=== PATIENT | female | born 1995 | race Caucasian/White ===

== ENCOUNTER 2018-01-05 11:19 | Emergency (ER) | payer SELFPAY ==
[2018-01-05 11:20] VITALS: BP 132/77; PULSE 98; RESP 18; TEMP 37; O2SAT 99; BMI 47.0
--- NOTE | 2018-01-05 12:00 | CT_ITS ---
STUDY: CT ABDOMEN AND PELVIS WITHOUT CONTRAST REASON FOR EXAM: Female, 22 years old. ABD AND PELVIC PAIN AND PRESSURE.;FEELS LIKE LABOR PAINS; Prior cholecystectomy. RADIATION DOSAGE (If Supplied By Facility): CTDIvol = ( 23.93 ) mGy, DLP = ( 1381.03 ) mGycm TECHNIQUE: Transaxial images were obtained from the dome of the diaphragm to the symphysis pubis without oral contrast, and without intravenous contrast. Sagittal and coronal images were reconstructed. Individualized dose optimization techniques were used for this CT. COMPARISON: None. FINDINGS: The visualized lung bases are unremarkable. The visualized portions of the heart are within normal limits. There could be mild fatty infiltration of the liver. There are surgical clips in the gallbladder fossa consistent with a prior cholecystectomy. Normal spleen. Normal pancreas. Normal bilateral adrenal glands. Normal right kidney. Normal left kidney. Normal visualized stomach. Normal small intestine. Normal colon. The appendix is visualized and appears normal. Normal abdominal aorta. Normal inferior vena cava. Normal retroperitoneum. Normal urinary bladder. There is a small umbilical hernia containing fat. Normal osseous structures. CT/Abdomen/Pelvis without Cont IMPRESSION: There is a small umbilical hernia containing fat. There could be mild fatty infiltration of the liver. Electronically Signed: Berta Yang MD at 12:44 EDT , Service support ,
[2018-01-05] MEDS: Ondansetron 4 MG/2 ML Vial IV (12:17)
[2018-01-05] MEDS: 0.9% Normal Saline 1,000 ML 1000 ML IV (12:17)
[2018-01-05] MEDS: Morphine 4 MG/ML Syringe IV (12:17)
[2018-01-05 12:44] LABS: Absolute Lymphocyte Count 3.62 X10^3/ul (0.83-4.51); Absolute Neutrophil Count 6.5 X10^3/uL (2.0-7.7); Basophil# 0.02 X10^3/uL; Basophil% 0.2 % (0-1); Eosinophil# 0.35 X10^3/uL; Eosinophils% 3.1 % (0-5); Hematocrit 42.8 % (37-47); Hemoglobin 13.7 g/dl (12.0-15.0); Lymphocyte # 3.62 X10^3/ul (4.0); Lymphocyte % 32.1 % (19-41); Mean Corpuscular Hgb 28.6 pg (27.0-32.0); Mean Corpuscular Volume 89.4 fL (81-99); Mean Platelet Vol. 11.4 fl (6.2-12.0); Monocyte# 0.81 X10^3/uL; Monocyte% 7.2 % (0-10); Neutrophil # 6.46 X10^3/uL (2.7-7.7); Neutrophil % 57.1 % (47-70); Platelet Count 226 K/mm3 (150-450); RBC Distribution Width SD 42.2 fl (35.1-43.9); Red Blood Count 4.79 M/mm3 (4.2-5.4); White Blood Count 11.3 K/mm3 (4.4-11.0)
[2018-01-05 12:53] LABS: POSITIVE COUNT NO; POSITIVE DIFFERENTIAL NO; POSITIVE MORPHOLOGY NO
[2018-01-05 12:54] LABS: ALB/GLOB Ratio 0.7 RATIO (0.9-2.4); AST(SGOT) 66 U/L (15-37); Alanine Aminotransfer ALT/SGPT 86 U/L (13-56); Albumin, Serum 3.2 g/dL (3.2-5.0); Alkaline Phosphatase 71 U/L (45-117); Anion Gap 6 (5-15); BUN 9 mg/dL (7-18); BUN/Creat Ratio 13.7 RATIO (10-20); Calcium,Total 8.6 mg/dL (8.5-10.1); Chloride 111 mmol/L (98-107); Creatinine, Serum 0.66 mg/dL (0.55-1.02); EST Glomerular Filtration Rate 117 mL/min (>60); Est Glom Filt Rate - Afr Amer 142 mL/min (>60); Estimated Creatinine Clearance 127.81 ml/min; Globulin 4.7 g/dL (2.2-4.2); Glucose 91 mg/dL (74-106); Protein, Total 7.9 g/dL (6.4-8.2); Sodium Level 140 mmol/L (136-145)
--- NOTE | 2018-01-05 13:10 | ED.VISSUMM ---
- ER Visit Summary Date of Service: 01/05/18 Chief Complaint: Patient presents with abdominal pain that is diffuse and started about 18 hours ago. She was seen at an outside hospital apparently had a normal urinalysis, negative and unremarkable blood work, she continues to have the pain. No fever or chills no diarrhea or constipation no dysuria. No flank pain. The pain is mostly lower abdominal pain left greater than right but she says that the entire abdomen hurts. Is described as crampy waxing and waning. No right upper quadrant pain infectious had a cholecystectomy. Physical Examination: Appears in some distress. Morbidly obese Moist mucous membranes, no obvious facial deformity No C-spine tenderness supple neck. Regular rate and rhythm without any obvious murmurs Clear lungs bilaterally speaking in full sentences without any obvious respiratory distress Abdomen soft with diffuse tenderness no guarding or rebound. Most the pain is left lower quadrant there is no significant pelvic pain there is no specific pain at McBurney's. Moves all extremities without any difficulty or pain. Skin does not show any obvious rashes or lesions, no trauma. Alert oriented ?3 with no gross focal deficit Emergency Department Course and Treatment: Patient was given analgesia IV fluids CBC chemistries and CT are unremarkable. She did have evidence of a urinary tract infection, she will be treated otherwise she will be discharged to follow-up with CONVENTION SERVICES MANAGER. Discharge stable condition Impression: [Abdominal pain, urinary tract infection] This note was generated with [employer] dictation software. It may contain incorrect words, spelling, and punctuation that were not noted in review of the chart prior to signing ED Disposition - Plan for ED Patient: Disposition: Home or Assisted Living Chief Complaint: Abd Pain Instructions: ED Abdominal Pain Unkn Cause, Understanding Urinary Tract Infections (UTIs) Prescriptions: Smz/Tmp Ds [Bactrim Ds] 1 tab PO BID #14 tab Referrals: Leelee Jackson NP-C [Primary Care Provider] - 3-5 Days
--- NOTE | 2018-01-05 13:18 | ED.DCSUM_ITS ---
- ER Visit Summary Date of Service: 01/05/18 Chief Complaint: Patient presents with abdominal pain that is diffuse and started about 18 hours ago. She was seen at an outside hospital apparently had a normal urinalysis, negative and unremarkable blood work, she continues to have the pain. No fever or chills no diarrhea or constipation no dysuria. No flank pain. The pain is mostly lower abdominal pain left greater than right but she says that the entire abdomen hurts. Is described as crampy waxing and waning. No right upper quadrant pain infectious had a cholecystectomy. Physical Examination: Appears in some distress. Morbidly obese Moist mucous membranes, no obvious facial deformity No C-spine tenderness supple neck. Regular rate and rhythm without any obvious murmurs Clear lungs bilaterally speaking in full sentences without any obvious respiratory distress Abdomen soft with diffuse tenderness no guarding or rebound. Most the pain is left lower quadrant there is no significant pelvic pain there is no specific pain at McBurney's. Moves all extremities without any difficulty or pain. Skin does not show any obvious rashes or lesions, no trauma. Alert oriented ?3 with no gross focal deficit Emergency Department Course and Treatment: Patient was given analgesia IV fluids CBC chemistries and CT are unremarkable. She did have evidence of a urinary tract infection, she will be treated otherwise she will be discharged to follow-up with PAINTINGS CONSERVATOR. Discharge stable condition Impression: [Abdominal pain, urinary tract infection] This note was generated with [employer] dictation software. It may contain incorrect words, spelling, and punctuation that were not noted in review of the chart prior to signing ED Disposition - Plan for ED Patient: Disposition: Home or Assisted Living Chief Complaint: Abd Pain Instructions: ED Abdominal Pain Unkn Cause, Understanding Urinary Tract Infections (UTIs) Prescriptions: Smz/Tmp Ds [Bactrim Ds] 1 tab PO BID #14 tab Referrals: Leelee Jackson NP-C [Primary Care Provider] - 3-5 Days
[2018-01-05 13:32] VITALS: BP 135/70; PULSE 90; RESP 14; O2SAT 99
[2018-01-05 13:32] LABS: Bacteria 0 SEEN /hpf (None Seen); Mucous, Urine 0 SEEN /hpf (<or=2+); Red Blood Cells-Urine 0 SEEN /hpf (0-5)
[2018-01-05 13:36] LABS: Color, Urine Yellow (Yellow); Glucose, Dipstick Normal (Normal); Ketone-Dipstick Negative (Negative); Leukocyte Esterase-Dipstick 500 /ul (Negative); Nitrite-Dipstick Negative (Negative); Occult Blood-Urine 10 /ul (Negative); Protein-Dipstick 15 mg/dl (Negative); Specific Gravity, Urine 1.015 (1.002-1.030); Urine Bilirubin Dipstick Negative (Negative); Urine Clarity Sl. Cloudy (Clear); Urine Urobilinogen Normal (Normal)
[2018-01-05 13:45] LABS: Squamous Epithelial Cells - UA 10-25 SEEN /hpf (5-10); White Blood Cells 10-25 SEEN /hpf (0-5)
[2018-01-05 14:16] VITALS: BP 140/78; PULSE 85; RESP 14; O2SAT 99
== END 2018-01-05 14:21 | disposition home or self-care (01) ==
PROVIDERS: Emergency Provider Emergency Medicine; Family Provider Nurse Practitioner Primary Care; PCP Nurse Practitioner Primary Care
DX: R10.84 Generalized abdominal pain (principal); E66.01 Morbid (severe) obesity due to excess calories; Z72.0 Tobacco use
CPT/HCPCS: 74176; 80053; 81001; 85025; 96374; 96375; 99283; J7030; J2405

== ENCOUNTER 2018-02-07 20:59 | Emergency (ER) | payer SELFPAY ==
[2018-02-07 21:00] VITALS: BP 139/77; PULSE 90; RESP 16; TEMP 36.5; O2SAT 95; BMI 47.6
[2018-02-07] MEDS: Ondansetron 4 MG/2 ML Vial IV (23:50)
[2018-02-07] MEDS: 0.9% Normal Saline 1,000 ML 1000 ML IV (23:50)
[2018-02-07 23:53] LABS: Bacteria 0 SEEN /hpf (None Seen); Mucous, Urine 0 SEEN /hpf (<or=2+); Red Blood Cells-Urine 0 SEEN /hpf (0-5)
[2018-02-07 23:56] VITALS: BP 136/95; BP 138/76; BP 145/89; PULSE 73; PULSE 77; PULSE 80
[2018-02-08 00:05] LABS: Color, Urine Yellow (Yellow); Glucose, Dipstick Normal (Normal); Ketone-Dipstick 5 mg/dl (Negative); Leukocyte Esterase-Dipstick 100 /ul (Negative); Nitrite-Dipstick Negative (Negative); Occult Blood-Urine 10 /ul (Negative); Protein-Dipstick 30 mg/dl (Negative); Specific Gravity, Urine 1.025 (1.002-1.030); Urine Bilirubin Dipstick Negative (Negative); Urine Clarity Clear (Clear); Urine Urobilinogen Normal (Normal)
[2018-02-08 00:13] LABS: Absolute Lymphocyte Count 5.08 X10^3/ul (0.83-4.51); Absolute Neutrophil Count 7.3 X10^3/uL (2.0-7.7); Basophil# 0.07 X10^3/uL; Basophil% 0.5 % (0-1); Eosinophil# 0.25 X10^3/uL; Eosinophils% 1.9 % (0-5); Hematocrit 44.7 % (37-47); Hemoglobin 15.1 g/dl (12.0-15.0); Lymphocyte # 5.08 X10^3/ul (4.0); Lymphocyte % 37.7 % (19-41); Mean Corp Hgb Conc 33.8 g/gl (32-36); Mean Corpuscular Hgb 29.1 pg (27.0-32.0); Mean Corpuscular Volume 86.1 fL (81-99); Mean Platelet Vol. 11.1 fl (6.2-12.0); Monocyte# 0.71 X10^3/uL; Monocyte% 5.3 % (0-10); Neutrophil # 7.32 X10^3/uL (2.7-7.7); Neutrophil % 54.2 % (47-70); Platelet Count 288 K/mm3 (150-450); RBC Distribution Width CV 13.2 % (11.6-14.6); RBC Distribution Width SD 40.8 fl (35.1-43.9); Red Blood Count 5.19 M/mm3 (4.2-5.4); White Blood Count 13.5 K/mm3 (4.4-11.0)
[2018-02-08 00:19] LABS: Differential Indicated SCAN CRITERIA MET; POSITIVE COUNT NO; POSITIVE DIFFERENTIAL YES; POSITIVE MORPHOLOGY YES
[2018-02-08 00:25] LABS: Pregnancy, Serum, hCG Quali. NEGATIVE Negative (0-9 Nonpreg)
[2018-02-08 00:26] LABS: Squamous Epithelial Cells - UA 25-50 SEEN /hpf (5-10); White Blood Cells 0-5 SEEN /hpf (0-5)
[2018-02-08] MEDS: proMETHazine 25 MG/ML Syringe 12.5 MG IV (00:32)
[2018-02-08 01:01] LABS: Anion Gap 13 (5-15); BUN 10 mg/dL (7-18); BUN/Creat Ratio 11.1 RATIO (10-20); Calcium,Total 9.1 mg/dL (8.5-10.1); Chloride 107 mmol/L (98-107); EST Glomerular Filtration Rate 82 mL/min (>60); Est Glom Filt Rate - Afr Amer 99 mL/min (>60); Estimated Creatinine Clearance 93.73 ml/min; Glucose 92 mg/dL (74-106); Potassium 3.8 mmol/L (3.5-5.1); Sodium Level 140 mmol/L (136-145)
[2018-02-08] MEDS: HYDROcodone Bitartrate/Apap 5/325 Tablet PO ×2 (01:12→01:31)
--- NOTE | 2018-02-08 01:16 | ED.VISSUMM ---
- ER Visit Summary Date of Service: 02/08/18 Chief Complaint: [Vomiting] History of Present Illness: The patient is a 22 F [presents to the emergency department complaint of vomiting that started today. Patient states she has thrown up at least 13 times. Patient denies any abdominal pain. Patient did feel lightheaded today. Patient states her periods are irregular but she does not think she is . She denies any sick contacts. She has had no fever. Patient does have a right lower molar that is painful and has a dentist appointment coming up next week. Patient denies any diarrhea.] Physical Examination: [HEENT-PERRLA, EOMI. Cranial nerves II through XII grossly intact. TMs clear. Mucous membranes moist. No adenopathy. Right lower third molar broken and carried and tender to palpation. No gingival abscess noted. No facial cellulitis. Cardiovascular-regular rate and rhythm without murmur or ectopy Lungs-clear to auscultation, chest wall stable without crepitus or subcu emphysema Abdomen-normoactive bowel sounds, soft, nontender, no rebound or rigidity, no peritoneal signs. Extremities-intact ?4, normal range of motion, normal pulses, atraumatic] Test Results: [CBC with differential obtained showed a white count of 13.5, hemoglobin 15, hematocrit 45, platelets 288. Chemistries unremarkable. Urinalysis showed small amount of ketones. HCG was negative.] Emergency Department Course and Treatment: Patient was given a liter normal same fluid bolus. Patient was given Zofran 4 mg IV followed by Phenergan 12.5 mg IV. Patient was able to tolerate p.o. fluids. Patient was given a dose of clindamycin p.o. [] Treatment Plan: [Patient will be given a prescription for clindamycin and Zofran as well as [place]] Disposition: [Discharged home in stable condition] Impression: [Vomiting/gastroenteritis Dental pain] This note was generated with [employer] dictation software. It may contain incorrect words, spelling, and punctuation that were not noted in review of the chart prior to signing ED Disposition - Plan for ED Patient: Chief Complaint: Nausea/Vomiting Referrals: Leelee Jackson, KAITLYNNC [Primary Care Provider] -
--- NOTE | 2018-02-08 01:18 | ED.DEP ---
ED Disposition - Plan for ED Patient: Chief Complaint: Nausea/Vomiting Instructions: ED Nausea Vomiting, ED Tooth Pain Prescriptions: Hydrocodone Bitart/Apap 5-325 [[place] 5MG-325MG] 1 tab PO Q4H PRN PRN 2 Days #10 tab PRN Reason: Pain Ondansetron [Zofran Odt] 4 mg PO Q8H PRN PRN #10 tab PRN Reason: Nausea Clindamycin HCl [Cleocin] 300 mg PO Q6H #40 cap Referrals: Leelee Jackson TRANSPORT AIDE-C [Primary Care Provider] - 3-5 Days Additional Instructions: see a dentist
[2018-02-08 01:25] LABS: Differential Comment SCANNED; Reactive Lymphocyte 2+
[2018-02-08] MEDS: Ondansetron ODT 4 MG Tablet PO (01:31)
[2018-02-08] MEDS: Clindamycin HCl 150 MG Capsule 300 MG PO (01:31)
[2018-02-08 01:35] VITALS: BP 122/78; PULSE 78; RESP 18; O2SAT 99
== END 2018-02-08 01:36 | disposition home or self-care (01) ==
LOC: ED 02-08 00:19
PROVIDERS: Emergency Provider Emergency Medicine; Family Provider Nurse Practitioner Primary Care; PCP Nurse Practitioner Primary Care
DX: K52.9 Noninfective gastroenteritis and colitis, unspecified (principal); K08.89 Other specified disorders of teeth and supporting structures; R11.2 Nausea with vomiting, unspecified; Z72.0 Tobacco use
CPT/HCPCS: 80048; 81001; 84703; 85025; 96361; 96374; 96375; 99285; J7030; A4216; J2405

== ENCOUNTER 2018-09-01 06:28 | Emergency (ER) | payer SELFPAY ==
[2018-09-01 06:28] VITALS: BP 132/72; PULSE 97; RESP 15; TEMP 36.9; O2SAT 98; BMI 44.3
--- NOTE | 2018-09-01 06:40 | ED.VISSUMM ---
- ER Visit Summary Date of Service: 09/01/18 Chief Complaint: Left shoulder and arm pain History of Present Illness: The patient is a 23 F who presents with left shoulder and arm pain that began about 2-3 hours before presentation. She complains of a sharp pain in her left shoulder and aching pain radiating down her arm. She complains of some tingling in her fingers. No weakness. No history of prior similar symptoms. No trauma or injury. Review of systems otherwise notable for recent cough. No fevers chest pain shortness of breath vomiting. Physical Examination: Afebrile vitals normal Heart regular rate and rhythm Lungs are clear Patient does have left paraspinal cervical and trapezius tenderness she has normal strength of the left upper extremity she has brisk capillary refill she has normal sensation Test Results: Not indicated Emergency Department Course and Treatment: Patient's presentation is suggestive of cervical radiculopathy. Given that she does have some muscular tenderness there is likely component of muscle strain or spasm in the shoulder neck as well. Discussed supportive care. Patient will be given a prescription for naproxen. She understands to return for new or worsening symptoms. She will otherwise follow-up as an outpatient was discharged home. Treatment Plan: [] Disposition: Discharge Impression: Cervical radiculopathy This note was generated with [employer] dictation software. It may contain incorrect words, spelling, and punctuation that were not noted in review of the chart prior to signing ED Disposition - Plan for ED Patient: Referrals: Leelee Jackson, JOLLY-C [Primary Care Provider] -
--- NOTE | 2018-09-01 06:41 | ED.DEP ---
ED Disposition - Plan for ED Patient: Instructions: ED Cervical Radiculopathy Prescriptions: Naproxen [Naprosyn] 500 mg PO BID #20 tab Referrals: Leelee Jackson JOGGLE PRESS OPERATOR-C [Primary Care Provider] -
== END 2018-09-01 06:53 | disposition home or self-care (01) ==
PROVIDERS: Emergency Provider Emergency Medicine; Family Provider Nurse Practitioner Primary Care; PCP Nurse Practitioner Primary Care
DX: M54.12 Radiculopathy, cervical region (principal); Z72.0 Tobacco use
CPT/HCPCS: 99282

== ENCOUNTER 2018-09-15 18:18 | Emergency (ER) | payer MEDICAID, SELFPAY ==
[2018-09-15 18:19] VITALS: BP 164/90; PULSE 109; RESP 16; TEMP 36.6; O2SAT 98; BMI 47.1
--- NOTE | 2018-09-15 18:45 | US_ITS ---
STUDY: TRANSVAGINAL ULTRASOUND REASON FOR EXAM: Female, 23 years old. Pelvic bleeding TECHNIQUE: A transvaginal ultrasound was performed. Multiple grayscale and color duplex Doppler imaging was performed. TECHNICAL QUALITY: Adequate. PRIOR ULTRASOUND: Prior CT 01/05/2018. FINDINGS: The uterus measures 6.6 x 4.4 x 2.7 cm. The endometrium measures 4 mm in AP diameter and appears unremarkable. There is no evidence for gestational sac.. Incidentally noted is nabothian cyst. There is no demonstrated uterine fibroid. . The right ovary measures 4.5 x 4.2 x 3.9. There is a 4.6 x 3.8 x 3.5 cm right ovarian cyst. There is no visualized right adnexal mass or complex lesion. The left ovary measures 2.6 x 1.7 x 2 cm. There is no left ovarian cyst. There is no visualized left adnexal mass or complex lesion. There is no fluid in the cul de sac. US/Transvaginal w/Preg US IMPRESSION: 4.6 x 3.8 x 3.5 cm right ovarian cyst, follow-up ultrasound for stability recommended in 3 months Nabothian cyst within the cervix No evidence for gestational sac. Correlation with serum beta hCG levels recommended. Electronically Signed: Rigoberto Paulino, at 20:42 EDT Tel , Service support ,
--- NOTE | 2018-09-15 18:55 | ED.VISSUMM ---
- ER Visit Summary Date of Service: 09/15/18 Chief Complaint: [] Vaginal bleeding indeterminant test History of Present Illness: The patient is a 23 F [] patient is a , indicating she had early miscarriage and then live 18 weeks with subsequent of that child, indicates she is having no menstrual cycles for over 8 months, she took a test that somehow was indeterminant she had intermittent spotting since yesterday and she came in for evaluation, she has no history of ectopic does complain of pelvic cramps intermittently no nausea or vomiting no urinary symptoms It is not clear why she has had no menstrual cycles for 8 months she has a thoracic surgeon and has not seen them she has no known history of STD or any or PULP OPERATOR pathology states Physical Examination: [] vs signs are within normal limits General, no distress resting comfortably, still a large woman with a BMI of 50 HEENT is generally unremarkable The neck is supple no adenopathy Cardiovascular, regular rate and rhythm Lungs, clear bilateral Abdomen, soft nontender has intermittent pelvic cramps by her history, but her regarding organ megaly, She is deferred pelvic exam Extremities, no clubbing cyanosis or edema Neurologic, awake alert answering questions appropriately moving all 4 extremities Test Results: [] Emergency Department Course and Treatment: [] In all the above screening labs test fluids ultrasound Since laboratory results including hCG are negative and generally unremarkable see those reports pelvic ultrasound report also generally unremarkable see that report nothing acute, explained all the above to her she is comfortable discharge home now she is feeling better and she felt her thoracic surgeon take [id number] ibuprofen as needed and return for change in symptoms Treatment Plan: [] Disposition: [] Home stable Impression: [] Dysfunctional uterine bleeding no menstrual cycle for 8 months This note was generated with [employer] software. It may contain incorrect words, spelling, and punctuation that were not noted in review of the chart prior to signing ED Disposition - Plan for ED Patient: Referrals: Leelee Jackson NP-C [Primary Care Provider] -
--- NOTE | 2018-09-15 18:58 | ED.DCSUM_ITS ---
- ER Visit Summary Date of Service: 09/15/18 Chief Complaint: [] Vaginal bleeding indeterminant test History of Present Illness: The patient is a 23 F [] patient is a , indicating she had early miscarriage and then live 18 weeks with subsequent of that child, indicates she is having no menstrual cycles for over 8 months, she took a test that somehow was indeterminant she had intermittent spotting since yesterday and she came in for evaluation, she has no history of ectopic does complain of pelvic cramps intermittently no nausea or vomiting no urinary symptoms It is not clear why she has had no menstrual cycles for 8 months she has a nurse esthetician and has not seen them she has no known history of STD or any or HHAS pathology states Physical Examination: [] vs signs are within normal limits General, no distress resting comfortably, still a large woman with a BMI of 50 HEENT is generally unremarkable The neck is supple no adenopathy Cardiovascular, regular rate and rhythm Lungs, clear bilateral Abdomen, soft nontender has intermittent pelvic cramps by her history, but her regarding organ megaly, She is deferred pelvic exam Extremities, no clubbing cyanosis or edema Neurologic, awake alert answering questions appropriately moving all 4 extremities Test Results: [] Emergency Department Course and Treatment: [] In all the above screening labs test fluids ultrasound Since laboratory results including hCG are negative and generally unremarkable see those reports pelvic ultrasound report also generally unremarkable see that report nothing acute, explained all the above to her she is comfortable discharge home now she is feeling better and she felt her nurse esthetician take [id number] ibuprofen as needed and return for change in symptoms Treatment Plan: [] Disposition: [] Home stable Impression: [] Dysfunctional uterine bleeding no menstrual cycle for 8 months This note was generated with [employer] software. It may contain incorrect words, spelling, and punctuation that were not noted in review of the chart prior to signing ED Disposition - Plan for ED Patient: Referrals: Leelee Jackson NP-C [Primary Care Provider] -
[2018-09-15 19:10] LABS: Absolute Lymphocyte Count 3.22 X10^3/ul (0.83-4.51); Absolute Neutrophil Count 5.2 X10^3/uL (2.0-7.7); Basophil# 0.04 X10^3/uL; Basophil% 0.4 % (0-1); Eosinophil# 0.65 X10^3/uL; Eosinophils% 6.6 % (0-5); Hematocrit 44.7 % (37-47); Hemoglobin 14.8 g/dl (12.0-15.0); Lymphocyte # 3.22 X10^3/ul (4.0); Lymphocyte % 32.9 % (19-41); Mean Corp Hgb Conc 33.1 g/gl (32-36); Mean Corpuscular Hgb 29.2 pg (27.0-32.0); Mean Corpuscular Volume 88.3 fL (81-99); Mean Platelet Vol. 11.1 fl (6.2-12.0); Monocyte# 0.64 X10^3/uL; Monocyte% 6.5 % (0-10); Neutrophil % 53.3 % (47-70); POSITIVE COUNT NO; POSITIVE DIFFERENTIAL NO; POSITIVE MORPHOLOGY NO; Platelet Count 240 K/mm3 (150-450); RBC Distribution Width CV 13.3 % (11.6-14.6); RBC Distribution Width SD 42.7 fl (35.1-43.9); Red Blood Count 5.06 M/mm3 (4.2-5.4); White Blood Count 9.8 K/mm3 (4.4-11.0)
[2018-09-15 19:21] LABS: Pregnancy, Serum, hCG Quali. NEGATIVE Negative (0-9 Nonpreg)
[2018-09-15] MEDS: 0.9% Normal Saline 1,000 ML 1000 ML IV (19:21)
[2018-09-15 19:31] LABS: Mucous, Urine 0 SEEN /hpf (<or=2+); White Blood Cells 0 SEEN /hpf (0-5)
[2018-09-15 19:35] LABS: Color, Urine Yellow (Yellow); Glucose, Dipstick Normal (Normal); Ketone-Dipstick 5 mg/dl (Negative); Leukocyte Esterase-Dipstick 25 /ul (Negative); Nitrite-Dipstick Negative (Negative); Occult Blood-Urine 50 /ul (Negative); Protein-Dipstick 15 mg/dl (Negative); Urine Bilirubin Dipstick Negative (Negative); Urine Clarity Clear (Clear); Urine Urobilinogen 4 mg/dl (Normal); Urine pH 6.5 (5.0 - 8.0)
[2018-09-15 19:38] LABS: Bacteria RARE /hpf (None Seen); Red Blood Cells-Urine 0-5 SEEN /hpf (0-5); Squamous Epithelial Cells - UA 0-5 SEEN /hpf (5-10)
--- NOTE | 2018-09-15 20:29 | ED.DEP ---
ED Disposition - Plan for ED Patient: Instructions: ED Bleed Irregular Vaginal Referrals: Leelee Jackson, SPIRITS MODEL-C [Primary Care Provider] -
--- NOTE | 2018-09-15 20:30 | DCINST.ED_ITS ---
ED Disposition - Plan for ED Patient: Instructions: ED Bleed Irregular Vaginal Referrals: Leelee Jackson, BIOFUELS PRODUCTION ASSOCIATE-C [Primary Care Provider] -
[2018-09-15 21:39] VITALS: BP 117/90; PULSE 89; RESP 17; O2SAT 97
--- NOTE | 2018-09-15 21:39 | ED.RN ---
IV DC'ED, CATHETER INTACT, SMALL GAUZE DRESSING PLACED. DISCHARGE INSTRUCTIONS GIVEN TO AND REVIEWED WITH PATIENT, PATIENT DENIES QUESTIONS OR CONCERNS AND VOICES UNDERSTANDING OF DISCHARGE INSTRUCTIONS. PT AMBULATE SOUT OF ROOM WITHOUT DIFFICULTY.
== END 2018-09-15 21:40 | disposition home or self-care (01) ==
PROVIDERS: Emergency Provider Emergency Medicine; Family Provider Nurse Practitioner Primary Care; PCP Nurse Practitioner Primary Care
DX: N93.8 Other specified abnormal uterine and vaginal bleeding (principal)
CPT/HCPCS: 76817; 81001; 84703; 85025; 86900; 86901; 96360; 96361; 99282; J7030; A4216

== ENCOUNTER 2018-12-28 01:25 | Emergency (ER) | payer MEDICAID, SELFPAY ==
[2018-12-28 01:26] VITALS: BP 160/109; PULSE 110; RESP 18; TEMP 36.6; O2SAT 97; BMI 49.4
--- NOTE | 2018-12-28 02:26 | RAD_ITS ---
STUDY: X-RAY - RIGHT ANKLE REASON FOR EXAM: Female, 23 years old. Trauma. Pain TECHNIQUE: 3 view(s) of the ankle. COMPARISON: None. FINDINGS: Normal visualized distal tibia and fibula. Normal medial and lateral malleoli. Normal tibiotalar articulation and ankle mortise. Normal visualized talus and calcaneus. There is internal fixation of calcaneus fracture. There is arthrodesis of the first tarsometatarsal joint. The soft tissue structures are unremarkable. RAD/Ankle min 3 Views IMPRESSION: No acute bone injury of the ankle. Electronically Signed: Wayne Levi, at 3:08 EDT Tel , Service support ,
--- NOTE | 2018-12-28 02:26 | RAD_ITS ---
STUDY: X-RAY - RIGHT FOOT CLINICAL: Female, 23 years old. Trauma. Pain TECHNIQUE: 3 view(s) of the foot. COMPARISON: None. FINDINGS: Internal fixation of calcaneus fracture. Arthrodesis of the first tarsometatarsal joint, medial intercuneiform joint and navicular-cuneiform joint. Normal metatarsi. Normal metatarsophalangeal joint of the great toe. Normal tibial and fibular sesamoid bones. Normal interphalangeal joint of the great toe. Normal phalanges of the great toe. Normal second through fifth metatarsophalangeal joints. Normal interphalangeal joints and phalanges of the lesser toes. The soft tissue structures are unremarkable. RAD/Foot min 3 Views IMPRESSION: No acute bone injury of the foot. Electronically Signed: Wayne Levi, at 3:13 EDT Tel , Service support ,
[2018-12-28] MEDS: Naproxen 500 MG Tablet PO (03:18)
--- NOTE | 2018-12-28 03:23 | ED.DCSUM_ITS ---
- ER Visit Summary Date of Service: 12/28/18 Chief Complaint: Right ankle and foot pain History of Present Illness: The patient is a 23 F who presents with a right ankle and foot injury. She twisted this a couple of days ago. She now complains of pain in the back of her ankle and along her Achilles tendon. She is able to ambulate. No paresthesias weakness loss of function. She has been resting and elevating. 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 Physical Examination: Afebrile heart rate 110 Heart regular rate and rhythm Lungs clear Patient has diffuse nonfocal tenderness of the right ankle and foot she has no focal bony tenderness I do not appreciate any significant soft tissue swelling surgical scars are noted she has brisk capillary refill easily palpable dorsalis pedis pulse normal sensation active full range of motion Test Results: X-rays of the ankle and foot show no acute bony injury Emergency Department Course and Treatment: Patient was given naproxen. Visitor is requesting a CT or MRI. I explained this is not indicated. We discussed supportive care and outpatient follow-up. She was given a prescription for naproxen and discharged home. Treatment Plan: [] Disposition: Discharge Impression: Right foot sprain Right ankle sprain This note was generated with [employer] dictation software. It may contain incorrect words, spelling, and punctuation that were not noted in review of the chart prior to signing ED Disposition - Plan for ED Patient: Referrals: Leelee Jackson NP-C [Primary Care Provider] -
--- NOTE | 2018-12-28 03:25 | ED.DEP ---
ED Disposition - Plan for ED Patient: Instructions: Sprain, Ankle, with X-Ray, Sprain Foot Prescriptions: Naproxen [Naprosyn] 500 mg PO BID #20 tab Prescription Printed Referrals: Leelee Jackson NP-C [Primary Care Provider] -
[2018-12-28 03:45] VITALS: BP 154/87; PULSE 78; RESP 16; O2SAT 98
== END 2018-12-28 03:47 | disposition home or self-care (01) ==
PROVIDERS: Emergency Provider Emergency Medicine; Family Provider Nurse Practitioner Primary Care; PCP Nurse Practitioner Primary Care
DX: S93.401A Sprain of unspecified ligament of right ankle, initial encounter (principal); S93.601A Unspecified sprain of right foot, initial encounter; Z72.0 Tobacco use; X50.1XXA Overexertion from prolonged static or awkward postures, initial encounter; Y93.89 Activity, other specified; Y92.89 Other specified places as the place of occurrence of the external cause; Y99.8 Other external cause status
CPT/HCPCS: 73610; 73630; 99283

== ENCOUNTER 2019-01-31 03:41 | Emergency (ER) | payer MEDICAID, SELFPAY ==
[2019-01-31 03:43] VITALS: BP 150/113; PULSE 77; RESP 21; TEMP 36.3; O2SAT 100; BMI 56.3
--- NOTE | 2019-01-31 03:52 | ED.RN ---
RN CALLED FOR EKG, NO OLD EKGS IN MUSE
--- NOTE | 2019-01-31 03:53 | EKG12_ITS ---
Test Reason : CP Blood Pressure : / mmHG Vent. Rate : 094 BPM Atrial Rate : 094 BPM P-R Int : 138 ms QRS Dur : 084 ms QT Int : 354 ms P-R-T Axes : 057 065 020 degrees QTc Int : 442 ms Normal sinus rhythm Normal ECG Confirmed by KAYLEEN BAEZ, ANNABELLA ([id number]), acquisition editor FARNAZ SÁNCHEZ ([id number]) on 02/05/2019 10:24:28 AM Referred By: DC Confirmed By:NICHOLAS BEYER MD
--- NOTE | 2019-01-31 03:53 | RAD_ITS ---
STUDY: X-RAY CHEST REASON FOR EXAM: Female, 23 years old. Chest pain TECHNIQUE: Single AP portable view of the chest. COMPARISON: None. FINDINGS: The lungs are clear and expanded. There is no demonstrated pleural abnormality. Normal size heart. Normal mediastinum and heather. Normal visualized pulmonary arteries. Normal visualized aortic arch and descending thoracic aorta. Normal visualized thoracic spine. Normal visualized ribs, clavicles, and shoulders. There is no demonstrated abnormality of the visualized soft tissue structures of the upper abdomen. RAD/Chest 1 View (Portable) IMPRESSION: Normal x-ray examination of the chest. Electronically Signed: Wayne Levi, at 4:24 EDT Tel , Service support ,
[2019-01-31 04:06] VITALS: O2SAT 99
[2019-01-31] MEDS: Aspirin 81 MG TAB.CHEW 324 MG PO (04:07)
[2019-01-31 04:19] LABS: Absolute Lymphocyte Count 4.72 X10^3/uL (0.83-4.51); Absolute Neutrophil Count 4.2 X10^3/uL (2.0-7.7); Basophil# 0.05 X10^3/uL; Basophil% 0.5 % (0-1); Eosinophil# 0.35 X10^3/uL; Eosinophils% 3.5 % (0-5); Hematocrit 44.8 % (37-47); Hemoglobin 14.6 g/dL (12.0-15.0); Internal QC Validated? YES +Cl - CLEAR BKGD; Lymphocyte # 4.72 X10^3/ul (4.0); Lymphocyte % 47.2 % (19-41); Mean Corp Hgb Conc 32.6 g/dL (32-36); Mean Corpuscular Hgb 28.7 pg (27.0-32.0); Mean Platelet Vol. 10.8 fl (6.2-12.0); NRBC Flagged by Analyzer 0 % (0-5); Neutrophil # 4.24 X10^3/uL (2.7-7.7); Neutrophil % 42.4 % (47-70); Platelet Count 249 K/mm3 (150-450); Pregnancy, Serum, hCG Quali. NEGATIVE Negative; RBC Distribution Width CV 12.7 % (11.6-14.6); RBC Distribution Width SD 40.9 fl (35.1-43.9); Red Blood Count 5.09 M/mm3 (4.2-5.4)
[2019-01-31 04:28] LABS: D-Dimer Quantitative (DVT/PE) < 0.27 FEU/ug/m (0.27-0.49)
[2019-01-31 04:57] LABS: Anion Gap 8 (5-15); BUN 9 mg/dL (7-18); BUN/Creat Ratio 10.3 RATIO (10-20); Calcium,Total 9.1 mg/dL (8.5-10.1); Chloride 110 mmol/L (98-107); Creatinine, Serum 0.88 mg/dL (0.55-1.02); EST Glomerular Filtration Rate 83 mL/min (>60); Est Glom Filt Rate - Afr Amer 101 mL/min (>60); Estimated Creatinine Clearance 84.39 ml/min; Glucose 98 mg/dL (74-106); Sodium Level 143 mmol/L (136-145)
--- NOTE | 2019-01-31 05:07 | ED.DCSUM_ITS ---
- ER Visit Summary Date of Service: 01/31/19 Chief Complaint: Chest pain History of Present Illness: The patient is a 23 F with chest pain for approximately 9 hours. Pain was substernal and felt like heartburn. Everything seem to make it worse. Nothing seems to make it better. Associated with some shortness of breath. She does smoke. Denies any history of heart disease. Denies any history of lung disease. Denies any history of aortic disease. She did have a DVT which was provoked after an orthopedic surgery. She is not currently on blood thinners. No other associated symptoms. Physical Examination: Afebrile and vital signs unremarkable except for heart rate of 21. The patient appears slightly anxious. She is holding her chest. Skin appears normal without pallor or diaphoresis. Heart regular rate and rhythm. Lungs clear bilaterally. Extremities nontender with no edema. Test Results: EKG showed sinus rhythm at a rate of 94. No sign of acute ischemia or infarction pattern. CBC normal. Chemistry normal except for chloride 110. Troponin normal. D- dimer negative. test negative. One view portable chest x-ray was normal. Emergency Department Course and Treatment: Patient presents with chest pain. She is very low risk for ACS, PE. Nothing to suggest dissection. She was treated with aspirin and a GI cocktail while awaiting results. She was placed on a monitor. EKG, labs, chest x-ray all unremarkable. Given that she is low risk for any significant pathology, no further testing was pursued. Patient does feel slightly better after GI cocktail. She will cut back on smoking. Monitor foods that might make her symptoms worse. Watch for any other new symptoms which might help with diagnosis. Follow-up with your family doctor. She may use ynha-plh-nshmmws remedies for pain. Treatment Plan: As above Disposition: Discharge Impression: 1. Chest pain unclear etiology This note was generated with [employer] software. It may contain incorrect words, spelling, and punctuation that were not noted in review of the chart prior to signing ED Disposition - Plan for ED Patient: Referrals: Leelee Jackson NP-C [Primary Care Provider] -
--- NOTE | 2019-01-31 05:12 | DCINST.ED_ITS ---
ED Disposition - Plan for ED Patient: Instructions: CHEST PAIN, Uncertain Cause Referrals: Leelee Jackson INDUSTRIAL REHABILITATION CONSULTANT-C [Primary Care Provider] -
--- NOTE | 2019-01-31 05:12 | ED.DEP ---
ED Disposition - Plan for ED Patient: Instructions: CHEST PAIN, Uncertain Cause Referrals: Leelee Jackson INTER COM SERVICER-C [Primary Care Provider] -
[2019-01-31 05:14] VITALS: BP 121/87; PULSE 84; RESP 16; O2SAT 97
== END 2019-01-31 05:15 | disposition home or self-care (01) ==
LOC: ED 04:10
PROVIDERS: Emergency Provider Emergency Medicine; Family Provider Nurse Practitioner Primary Care; PCP Nurse Practitioner Primary Care
DX: R07.9 Chest pain, unspecified (principal); Z86.718 Personal history of other venous thrombosis and embolism; F17.200 Nicotine dependence, unspecified, uncomplicated
CPT/HCPCS: 71045; 80048; 84484; 84703; 85025; 85379; 93005; 99285; A4216

== ENCOUNTER 2019-02-16 00:55 | Emergency (ER) | payer MEDICAID, SELFPAY ==
[2019-02-16 00:56] VITALS: BP 148/81; PULSE 89; RESP 16; TEMP 36.9; O2SAT 100; BMI 47.8
[2019-02-16 01:05] VITALS: TEMP 36.9
--- NOTE | 2019-02-16 01:11 | ED.DCSUM_ITS ---
- ER Visit Summary Date of Service: 02/16/19 Chief Complaint: Dental pain History of Present Illness: The patient is a 23 F who presents with right lower dental pain that began earlier this morning. Patient states the pain is sharp. Patient states the pain is over the right lower molar area. Patient admits to facial and jaw swelling. Patient also admits to cold sensitivity. Patient states her pain is worse with any chewing or touching of the tooth. Patient denies any fevers or chills. Physical Examination: Vital signs are stable. Patient is afebrile. Patient is in no acute distress. Oral mucosa is pink and moist. There is a large dental carry noted over the right lower third molar. There is tenderness to percussion over this tooth. There is some mild gingival edema around this tooth. There is no sublingual edema or erythema. Oropharynx is clear. Airway is patent. Neck is supple. Trachea is midline. There is no JVD noted. Heart was regular rate and rhythm. Lungs are clear and equal bilaterally. Emergency Department Course and Treatment: Patient was given a dose of clindamycin and ibuprofen here. Patient was given a prescription for clindamycin. Patient was instructed to take Tylenol or ibuprofen as needed for pain. Patient was instructed to follow-up with her dentist on Monday as scheduled. Patient understood and was agreeable with the plan. All questions were answered. Disposition: Discharge home Impression: Infected dental caries This note was generated with Leond[employer] music dictation software. It may contain incorrect words, spelling, and punctuation that were not noted in review of the chart prior to signing ED Disposition - Plan for ED Patient: Disposition: Home or Assisted Living Diagnosis: Infected dental caries Instructions: Dental Cavity Prescriptions: Clindamycin HCl [Cleocin] 300 mg PO Q6H #40 cap Prescription Printed Referrals: Leelee Jackson NP-C [Primary Care Provider] - 5-7 Days Additional Instructions: Take the antibiotics as prescribed until gone. Follow-up with your dentist on Monday as scheduled. Take Tylenol or ibuprofen as needed for pain.
[2019-02-16] MEDS: Ibuprofen 400 MG Tablet 800 MG PO (01:20)
[2019-02-16] MEDS: Clindamycin HCl 150 MG Capsule 300 MG PO (01:21)
[2019-02-16 01:23] VITALS: BP 148/81; PULSE 69; RESP 15; O2SAT 98
== END 2019-02-16 01:23 | disposition home or self-care (01) ==
PROVIDERS: Emergency Provider Emergency Medicine; Family Provider Nurse Practitioner Primary Care; PCP Nurse Practitioner Primary Care
DX: K02.9 Dental caries, unspecified (principal); K04.7 Periapical abscess without sinus; E66.9 Obesity, unspecified; Z72.0 Tobacco use
CPT/HCPCS: 99283

== ENCOUNTER 2019-03-26 00:56 | Emergency (ER) | payer MEDICAID, SELFPAY ==
[2019-03-26 00:57] VITALS: BP 142/73; PULSE 104; RESP 18; TEMP 36.8; O2SAT 96; BMI 48.5
--- NOTE | 2019-03-26 01:53 | ED.VIS.GEN ---
History of Present Illness Chief Complaint: Other, Pain/Inj Informant: Patient Onset: Yesterday Context: Gradual Onset Timing: Continuous Current Severity: Severe Maximum Severity: Severe Narrative: Patient is a 23-year-old female with no past medical history presenting with neck pain. She states that she developed a stiff neck yesterday and has been worsening. She describes the pain as aching and sharp. It is worse on the left side and radiates to her shoulder. She is been taking Tylenol with no help of her symptoms. She has no associated fever, chills, rash, nausea or vomiting. She has no upper respiratory symptoms. She denies any trauma or injury. She states is possible she might slept on it wrong. She denies any other complaints at this time. Patient denies any numbness or tingling in her extremities. She states is hard to move her left arm because of pain in her shoulder and back. Past Medical History - Allergies and Home Meds Allergies/Adverse Reactions: Allergies docusate [From Colace] Allergy (Verified 03/26/19 00:59) Hives Penicillins Allergy (Verified 03/26/19 00:59) Anaphylaxis Primary Care Physician: Leelee Jackson NP-C [Primary Care Provider] - Past Medical History: None Surgical History: noncontributory Smoking Status: Current every day smoker Review of Systems All systems negative except as indicated Musculoskeletal: Reports: Arthralgias - left shoulder , Neck pain Physical Exam Vital Signs/Narrative: Vital Signs Temp Pulse Resp BP Pulse Ox 03/26/19 00:57 98.2 F 104 H 18 142/73 H 96 Inital Vital Signs reviewed: Yes - Mild tachycardia on arrival, suspect secondary to pain General: Well nourished, Well developed, No Acute Distress Head: Normocephalic, Atraumatic Eyes: Perrl, EOMI ENT: Moist mucous membranes, No rhinorrhea, TM's clear Neck: Supple, No JVD, - - No midline tenderness, no nuchal rigidity, significant left paraspinal tenderness to palpation, discomfort with range of motion of the neck Cardiovascular: Regular rate, Regular rhythm, No murmurs Respiratory: No distress, CTA bilaterally, Chest nontender Abdomen: Soft, Nontender, Nondistended, Normal bowel sounds Back: Nontender, Normal Inspection, - - Left upper thoracic paraspinal tenderness to palpation, left trapezius tenderness to palpation. Negative for: Spinal tenderness Extremities: Nontender, No edema, - - Range of motion of the extremities intact however limited on the left side secondary to pain Skin: Normal color, No rash Neurological: Alert, Oriented x3, Cranial nerves II-XII grossly intact, Normal Strength, Normal Sensation Psychological: Normal affect, Normal Mood Diagnostic/Tx/Re-eval - Medical Decision Making Evaluate for atraumatic neck pain. It appears to be muscle skeletal. She does not have meningeal signs. Suspect this is from muscle spasms. Patient is given Norflex and Motrin in the ER. She is discharged home with a course of Motrin and Flexeril. She has a normal neurovascular exam. Patient is counseled on signs and symptoms requiring return to the emergency room. Patient verbalizes agreement and understand this plan. Patient discharged home in stable and improved condition. ED Disposition - Plan for ED Patient: Disposition: Home or Assisted Living Diagnosis: Muscle spasms of neck Instructions: NECK SPASM, No Trauma Prescriptions: cycloBENZAPRine HCl [Flexeril] 10 mg PO TID PRN #20 tab PRN Reason: Muscle Spasm Prescription Printed Ibuprofen 600 mg PO 4X/DAY PRN #20 tab PRN Reason: Pain Or Fever Prescription Printed Referrals: Leelee Jackson NP-C [Primary Care Provider] - Additional Instructions: Return to ED if you develop fever or worsening symptoms. Follow-up with your primary care doctor.
[2019-03-26] MEDS: Ibuprofen 600 MG Tablet PO (02:00)
[2019-03-26] MEDS: Orphenadrine 60 MG/2 ML Ampul IM (02:01)
[2019-03-26 02:02] VITALS: BP 114/72; PULSE 74; RESP 16; O2SAT 98
== END 2019-03-26 02:16 | disposition home or self-care (01) ==
PROVIDERS: Emergency Provider Emergency Medicine; Family Provider Nurse Practitioner Primary Care; PCP Nurse Practitioner Primary Care
DX: M62.838 Other muscle spasm (principal); F17.200 Nicotine dependence, unspecified, uncomplicated
CPT/HCPCS: 90471; 96372; 99284

== ENCOUNTER 2019-06-06 00:23 | Emergency (ER) | payer MEDICAID, SELFPAY ==
[2019-06-06 00:24] VITALS: BP 160/91; PULSE 97; RESP 17; TEMP 36.9; O2SAT 99; BMI 49.2
--- NOTE | 2019-06-06 00:59 | CT_ITS ---
STUDY: CT BRAIN WITHOUT CONTRAST REASON FOR EXAM: Female, 23 years old. FRONTAL HEADACHE AND DIZZINESS,ELEVATED BP RADIATION DOSAGE (If Supplied By Facility): CTDIvol = ( 44.99 ) mGy, DLP = ( 829.85 ) mGycm TECHNIQUE: Transaxial CT imaging of the brain was performed without administration of intravenous contrast material. Individualized dose optimization techniques were used for this CT. COMPARISON: No relevant priors. FINDINGS: Normal soft tissue structures. Normal calvarium. Normal size ventricles and extra-axial spaces for the patient''s age. Normal white matter tracts of the cerebral hemispheres. Normal basal ganglia and thalami. Normal brainstem. Normal cerebellum. There is no intracranial hemorrhage. There are no findings of an acute ischemic infarction. Normal visualized paranasal sinuses. There is streak artifact from dental hardware and tongue ring. CT/Brain/Head without Contrast IMPRESSION: Normal unenhanced CT scan of the brain. Electronically Signed: Rigoberto Paulino, at 2:00 EST Tel , Service support ,
--- NOTE | 2019-06-06 00:59 | ED.VIS.GEN ---
History of Present Illness Chief Complaint: Dizziness Informant: Patient Narrative: Presents with a headache. She describes a frontal aching throbbing pain. It started approximately an hour ago at home gradually. She has been having headaches for the last year. Prior to her headache she gets an aura symptoms where she has d?j? vu and then developed nausea and then gets a headache. She is been using Tylenol. They can last up to 2 days. She has not had evaluation for this. She has no history of chronic migraines however over the last several months she has been getting a few per month. Positive photophobia. Past Medical History - Allergies and Home Meds Allergies/Adverse Reactions: Allergies docusate [From Colace] Allergy (Verified 06/06/19 00:24) Hives Penicillins Allergy (Verified 06/06/19 00:24) Anaphylaxis Primary Care Physician: Leelee Jackson NP-C [Primary Care Provider] - Prior records reviewed: Yes Past Medical History: None Surgical History: noncontributory Lives: With Family Smoking Status: Current every day smoker Alcohol: None Drugs: None Review of Systems General: Denies: Chills, Fever, Sweats Eyes: Denies: Visual changes - bilaterally, Diplopia ENT: Denies: Rhinorrhea, Sore throat Cardiovascular: Denies: Chest pain, Palpitations Respiratory: Denies: Dyspnea, Cough, Dyspnea on exertion Gastrointestinal: Reports: Nausea. Denies: Abdominal pain, Vomiting, Diarrhea, Melena, Hematochezia Genitourinary: Denies: Dysuria, Hematuria, Frequency Musculoskeletal: Denies: Back pain, Extremity Pain Skin: Denies: Rash, Wounds Neurological: Reports: Headache. Denies: Weakness, Numbness Physical Exam Vital Signs/Narrative: Vital Signs Temp Pulse Resp BP Pulse Ox 06/06/19 00:24 98.4 F 97 17 160/91 H 99 General: Well nourished, Well developed, No Acute Distress Head: Normocephalic, Atraumatic Eyes: Perrl, EOMI ENT: Moist mucous membranes, No rhinorrhea Neck: Supple, Nontender Cardiovascular: Regular rate, Regular rhythm, No murmurs Respiratory: No distress, CTA bilaterally, Chest nontender Abdomen: Soft, Nontender, Nondistended, Normal bowel sounds Back: Nontender, Normal Inspection Extremities: Nontender, No edema Skin: Normal color, No rash Neurological: Alert, Oriented x3, Cranial nerves II-XII grossly intact, Normal Strength, Normal Sensation Psychological: Normal affect, Normal Mood Diagnostic/Tx/Re-eval - Medical Decision Making Patient given IV fluids, Toradol, Compazine, Benadryl. CT head obtained. CT head negative. On reevaluation headache resolved patient resting comfortably. I feel she is having migraines with aura. We will follow-up as an outpatient. ED Disposition - Plan for ED Patient: Disposition: Home or Assisted Living Diagnosis: Migraine headache Instructions: ED, Migraine (Classical) Referrals: Leelee Jackson, NETEZZA ARCHITECT-C [Primary Care Provider] -
[2019-06-06] MEDS: 0.9% Normal Saline 1,000 ML 999 ML IV (01:24)
[2019-06-06] MEDS: proCHLORPERazine 10 MG/2 ML Vial IV (01:24)
[2019-06-06] MEDS: Ketorolac 30 MG/ML Syringe IV (01:25)
[2019-06-06] MEDS: DiphenhydrAMINE 50 MG/ML Syringe IV (01:27)
[2019-06-06 03:01] VITALS: BP 132/60; PULSE 71; RESP 16; O2SAT 98
== END 2019-06-06 03:03 | disposition home or self-care (01) ==
PROVIDERS: Emergency Provider Emergency Medicine; Family Provider Nurse Practitioner Primary Care; PCP Nurse Practitioner Primary Care
DX: G43.909 Migraine, unspecified, not intractable, without status migrainosus (principal); F17.200 Nicotine dependence, unspecified, uncomplicated
CPT/HCPCS: 70450; 96361; 96374; 96375; 99285; J7030; A4216

== ENCOUNTER 2019-06-16 01:04 | Emergency (ER) | payer MEDICAID, SELFPAY ==
[2019-06-16 01:06] VITALS: BP 153/106; PULSE 136; RESP 24; TEMP 37.1; O2SAT 96; BMI 48.7
[2019-06-16 01:09] VITALS: BP 153/106; PULSE 136; RESP 24; TEMP 37.1; O2SAT 96
--- NOTE | 2019-06-16 01:52 | ED.DCSUM_ITS ---
- ER Visit Summary Date of Service: 06/16/19 Chief Complaint: Cough, fever, body aches, nausea and vomiting History of Present Illness: The patient is a 23 F states the last 24 hours has had a cough, body aches, fever as high as 102, yellow phlegm, nausea and vomiting. No abdominal pain. No dysuria. No fever. She has had influenza in the past and had similar symptoms. She did not get a flu shot this year. Physical Examination: Young female no acute distress. Vital signs are stable her current temperature is 98.7 at after taking Tylenol within the last 2 hours. Pulse ox 96% on room air no signs hypoxia. H EENT exam unremarkable. Moist because membranes. TMs normal. No exudate. No [employer]. Neck nontender. No meningismus. No lymphadenopathy. Lungs clear to auscultation bilaterally. Dry cough. Heart tachycardic no murmur. Abdomen soft nontender normal bowel sounds no peritoneal signs. Patient is moving all 4 extremities. Nontender. No edema. Back nontender. Skin no rashes. No petechiae or purpura. Neurologically she is awake and alert with no focal motor deficits. Test Results: Chest x-ray AP and lateral 2 views read by myself shows no acute abnormality. Normal cardiac silhouette. I reviewed the radiologist interpretation radiologist believes it may be a left lower lobe infiltrate. I think that may be vascularity but patient will be treated for a possible left lower lobe pneumonia. Started on Zithromax. Given first dose in ER. Emergency Department Course and Treatment: History and exam are consistent with a viral syndrome most likely influenza. Treated with Zofran and then a p.o. fluid challenge. P.o. Zithromax in the emergency department for possible left lower lobe infiltrate. On repeat exam she is doing well at 2:45 AM. I did discuss chest x-ray results with the patient.. Treatment Plan: Fluids and rest. Tylenol Motrin for fever. Zofran as needed for nausea. Follow-up with not improving or return if worse. Disposition: Discharge Impression: Acute influenza Rule out left lower lobe pneumonia This note was generated with Floovedation software. It may contain incorrect words, spelling, and punctuation that were not noted in review of the chart prior to signing ED Disposition - Plan for ED Patient: Disposition: Home or Assisted Living Instructions: INFLUENZA (Adult) Prescriptions: Ondansetron [Zofran Odt] 4 mg PO Q8H PRN PRN #7 tab PRN Reason: Nausea Prescription Printed Referrals: Leelee Jackson NP-C [Primary Care Provider] - 3-5 Days if not improving Additional Instructions: Alternate Tylenol and Motrin for fever. Zofran as needed for nausea. Plenty of fluids and rest. Increase diet slowly as tolerated. Follow-up with your doctor if not improving. Return to the ER feeling worse.
--- NOTE | 2019-06-16 01:54 | ED.DEP ---
ED Disposition - Plan for ED Patient: Disposition: Home or Assisted Living Instructions: INFLUENZA (Adult) Prescriptions: Azithromycin [Zithromax] 250 mg PO DAILY #4 tab Prescription Printed Ondansetron [Zofran Odt] 4 mg PO Q8H PRN PRN #7 tab PRN Reason: Nausea Prescription Printed Referrals: Leelee Jackson PUBLIC ADDRESS SERVICER-C [Primary Care Provider] - 3-5 Days if not improving Additional Instructions: Alternate Tylenol and Motrin for fever. Zofran as needed for nausea. Plenty of fluids and rest. Increase diet slowly as tolerated. Follow-up with your doctor if not improving. Return to the ER feeling worse.
[2019-06-16] MEDS: Ondansetron 8 MG Tablet PO (02:04)
[2019-06-16 02:06] VITALS: BP 115/75; PULSE 110; RESP 20; TEMP 38; O2SAT 95
--- NOTE | 2019-06-16 02:13 | RAD_ITS ---
HISTORY: COUGH, N/V, FEVER, CHILLS, AND BODY ACHES EXAMINATION/TECHNIQUE: XR Chest 2 Views: COMPARISON: 01/31/2019 FINDINGS: Normal heart size. Left lower lobe peribronchial thickening and low-grade patchy infiltrate. The right lung appears clear. No vascular congestion or pleural effusion. No pneumothorax. The bony thorax appears intact. RAD/Chest PA and Lateral IMPRESSION: Left lower lobe patchy pneumonia. at 0232 Reported and signed by: Luther Collado MD Electronically Signed: Luther Collado, at 2:31 EST Tel , Service support ,
[2019-06-16] MEDS: Azithromycin 250 MG Tablet 500 MG PO (03:09)
[2019-06-16 03:10] VITALS: PULSE 105; RESP 20; O2SAT 96
== END 2019-06-16 03:11 | disposition home or self-care (01) ==
PROVIDERS: Emergency Provider Emergency Medicine; Family Provider Nurse Practitioner Primary Care; PCP Nurse Practitioner Primary Care
DX: J11.1 Influenza due to unidentified influenza virus with other respiratory manifestations (principal); J40 Bronchitis, not specified as acute or chronic; Z79.2 Long term (current) use of antibiotics; Z72.0 Tobacco use
CPT/HCPCS: 71046; 80048; 83605; 85025; 94640; 96360; 99283; 99285; J7030; A4216

== ENCOUNTER 2019-06-16 22:52 | Emergency (ER) | payer MEDICAID, SELFPAY ==
[2019-06-16 01:06] VITALS: BMI 48.7
[2019-06-16 22:53] VITALS: BP 121/104; PULSE 115; RESP 29; TEMP 36.4; O2SAT 96; O2SAT 97; BMI 48.4
[2019-06-16 22:58] VITALS: BP 121/104; PULSE 110; RESP 30; TEMP 36.4; O2SAT 96
--- NOTE | 2019-06-16 23:05 | RAD_ITS ---
HISTORY: dx with pneumonia this am, feels worse EXAM: XR Chest 2 Views: COMPARISON: June 16, 2019 FINDINGS: # of images incl. paperwork: 2 Lungs are clear. Heart is not enlarged. No acute osseous pathology perceived. Pulmonary vascularity is distinct. No effusions. RAD/Chest PA and Lateral IMPRESSION: Normal. at 2337 Reported and signed by: Jordan Gallardo MD Electronically Signed: Jordan aGllardo MD at 23:36 EST Tel , Service support ,
--- NOTE | 2019-06-16 23:07 | ED.DCSUM_ITS ---
- ER Visit Summary Date of Service: 06/16/19 Chief Complaint: Cough and complained of feeling short of breath History of Present Illness: The patient is a 23 F diagnosed with pneumonia yesterday. Started on Zithromax. Patient states she is had symptoms for about 3 days. Started an antibiotic last night. She had nausea vomiting x1 today and fever as high as 100-1 02. No diarrhea. No dysuria. No hemoptysis. No chest pain. States she feels more short of breath today than she did yesterday. Physical Examination: Young female no acute distress vital signs are stable. Heart rate 110 pulse ox 96% on room air no signs of hypoxia. Temperature 97.6. She does not look septic or toxic. She does not look dehydrated. She is in no respiratory distress. H EENT exam nasal congestion. Moist with membranes. TMs normal. Posterior pharynx unremarkable. No stridor or drooling. Neck nontender no meningismus. No lymphadenopathy. Lungs clear to auscultation bilaterally. Currently I do not hear any rales, rhonchi or wheezing. She is in no distress. She might be slightly diminished in the left base. Heart regular rhythm rate about 110 no murmur. Abdomen soft and nontender normal bowel sounds no peritoneal signs. She is obese. Patient is moving all 4 extremities. Calves are nontender without edema or cords. Neurologically she is awake and alert with no focal motor deficits. Test Results: CBC shows a white count of 11. Hemoglobin 14. No bands electrolytes unremarkable normal creatinine and gap. Lactic acid normal 1.2. Chest x-ray AP and lateral views read both by myself and the radiologist as normal. No infiltrate. Last night's x-ray was read as a left lower lobe infiltrate I personally would not have called that but when the radiologist did patient was treated with antibiotics. Emergency Department Course and Treatment: Clinically I do not hear any wheezing she will be given 1 DuoNeb aerosol to see if it helps her breathing. I will repeat a chest x-ray and compared to the one from yesterday to see if the pneumonia is any worse or she is developed a possible effusion. Labs also be obtained. She will be treated with a liter of normal saline. And Tylenol. Treatment Plan: Repeat exam she is doing well at 00 20 a.m. She feels comfortable being discharged to home. Patient requested an inhaler. We went over all test results. Disposition: Discharge Impression: Bronchitis This note was generated with Interhyp dictation software. It may contain incorrect words, spelling, and punctuation that were not noted in review of the chart prior to signing ED Disposition - Plan for ED Patient: Disposition: Home or Assisted Living Instructions: PNEUMONIA (Adult) Prescriptions: Albuterol Sulfate [Proventil Hfa] 6.7 gm IH Q4H PRN PRN #1 [email or web address] PRN Reason: Wheezing Prescription Printed Referrals: Leelee Jackson, MARINE OIL TERMINAL SUPERINTENDENT-C [Primary Care Provider] - 3-5 Days if not improving Additional Instructions: Fluids and rest. Alternate Tylenol Motrin for any fever and body aches. Follow-up with your doctor if not improving. Finish your current antibiotic. Inhaler 2 puffs as needed if wheezing or feel short of breath.
[2019-06-16] MEDS: 0.9% Normal Saline 1,000 ML 1000 ML IV (23:16)
--- NOTE | 2019-06-16 23:21 | ED.DEP ---
ED Disposition - Plan for ED Patient: Disposition: Home or Assisted Living Instructions: PNEUMONIA (Adult) Prescriptions: Albuterol Sulfate [Proventil Hfa] 6.7 gm IH Q4H PRN PRN #1 [email or web address] PRN Reason: Wheezing Prescription Printed Referrals: Leelee Jackson, REPLENISHMENT ANALYST-C [Primary Care Provider] - 3-5 Days if not improving Additional Instructions: Fluids and rest. Alternate Tylenol Motrin for any fever and body aches. Follow-up with your doctor if not improving. Finish your current antibiotic. Inhaler 2 puffs as needed if wheezing or feel short of breath.
[2019-06-16 23:24] LABS: Absolute Lymphocyte Count 1.87 X10^3/uL (0.83-4.51); Basophil# 0.04 X10^3/uL; Basophil% 0.4 % (0-1); Eosinophil# 0.22 X10^3/uL; Hemoglobin 14.6 g/dL (12.0-15.0); Lymphocyte # 1.87 X10^3/ul (4.0); Mean Corp Hgb Conc 33.2 g/dL (32-36); Mean Corpuscular Hgb 28.5 pg (27.0-32.0); Mean Corpuscular Volume 85.8 fL (81-99); Mean Platelet Vol. 11.1 fl (6.2-12.0); Monocyte# 0.82 X10^3/uL; Monocyte% 7.5 % (0-10); NRBC Flagged by Analyzer 0 % (0-5); Neutrophil # 8.01 X10^3/uL (2.7-7.7); Neutrophil % 72.7 % (47-70); Platelet Count 225 K/mm3 (150-450); RBC Distribution Width CV 12.6 % (11.6-14.6); RBC Distribution Width SD 39.2 fl (35.1-43.9); Red Blood Count 5.13 M/mm3 (4.2-5.4)
[2019-06-16 23:31] VITALS: PULSE 101; RESP 16
[2019-06-16] MEDS: Ipratropium/Albuterol Sulfate 3 ML AMPUL.NEB INHALATION (23:31)
[2019-06-16 23:39] LABS: Anion Gap 7 (5-15); BUN 10 mg/dL (7-18); BUN/Creat Ratio 13.9 RATIO (10-20); Calcium,Total 8.7 mg/dL (8.5-10.1); Chloride 106 mmol/L (98-107); Creatinine, Serum 0.72 mg/dL (0.55-1.02); EST Glomerular Filtration Rate 104 mL/min (>60); Est Glom Filt Rate - Afr Amer 126 mL/min (>60); Estimated Creatinine Clearance 124.83 ml/min; Glucose 98 mg/dL (74-106); Potassium 3.7 mmol/L (3.5-5.1); Sodium Level 135 mmol/L (136-145)
[2019-06-16 23:54] LABS: Lactic Acid 1.2 mmol/L (0.4-1.9)
[2019-06-17 00:30] VITALS: BP 138/86; PULSE 112; RESP 22; O2SAT 94
== END 2019-06-17 00:31 | disposition home or self-care (01) ==
PROVIDERS: Emergency Provider Emergency Medicine; Family Provider Nurse Practitioner Primary Care; PCP Nurse Practitioner Primary Care
DX: J40 Bronchitis, not specified as acute or chronic (principal); Z79.2 Long term (current) use of antibiotics; Z72.0 Tobacco use
CPT/HCPCS: 71046; 80048; 83605; 85025; 94640; J7030; A4216

== ENCOUNTER 2019-09-12 00:09 | Emergency (ER) | payer MEDICAID, SELFPAY ==
[2019-09-12 00:09] VITALS: BP 140/82; PULSE 90; RESP 18; TEMP 37.2; O2SAT 94; BMI 51.6
--- NOTE | 2019-09-12 00:31 | EKG12_ITS ---
Test Reason : CP Blood Pressure : / mmHG Vent. Rate : 093 BPM Atrial Rate : 093 BPM P-R Int : 132 ms QRS Dur : 084 ms QT Int : 338 ms P-R-T Axes : 053 058 027 degrees QTc Int : 420 ms Normal sinus rhythm Nonspecific ST and T wave abnormality Abnormal ECG Confirmed by KAYLEEN BAEZ, ANNABELLA ([id number]), deputy editor in chief HANNAH BLACK ([id number]) on 09/13/2019 9:36:44 AM Referred By: MKIE Confirmed By:NICHOLAS BEYER MD
--- NOTE | 2019-09-12 00:31 | RAD_ITS ---
STUDY: X-RAY CHEST REASON FOR EXAM: Female, 24 years old. CP TECHNIQUE: Single AP portable view of the chest. COMPARISON: 06/16/2019. FINDINGS: The lungs are clear and expanded. There is no demonstrated pleural abnormality. Normal size heart. Normal mediastinum and heather. Normal visualized pulmonary arteries. Normal visualized aortic arch and descending thoracic aorta. Normal visualized thoracic spine. Normal visualized ribs, clavicles, and shoulders. There is no demonstrated abnormality of the visualized soft tissue structures of the upper abdomen. RAD/Chest 1 View (Portable) IMPRESSION: Normal x-ray examination of the chest. Electronically Signed: oJnathan Burnett MD at 1:13 EDT , Service support ,
[2019-09-12] MEDS: 0.9% Normal Saline 1,000 ML 1000 ML IV (00:59)
[2019-09-12] MEDS: Ketorolac 15 MG/ML Vial IV (00:59)
[2019-09-12 01:08] LABS: Absolute Lymphocyte Count 4.35 X10^3/uL (0.83-4.51); Absolute Neutrophil Count 5.9 X10^3/uL (2.0-7.7); Basophil# 0.04 X10^3/uL; Basophil% 0.3 % (0-1); Eosinophil# 0.56 X10^3/uL; Eosinophils% 4.8 % (0-5); Hematocrit 44.6 % (37-47); Hemoglobin 14.8 g/dL (12.0-15.0); Lymphocyte # 4.35 X10^3/ul (4.0); Lymphocyte % 37.7 % (19-41); Mean Corp Hgb Conc 33.2 g/dL (32-36); Mean Corpuscular Hgb 29.4 pg (27.0-32.0); Mean Corpuscular Volume 88.7 fL (81-99); Mean Platelet Vol. 10.9 fl (6.2-12.0); Monocyte% 5.2 % (0-10); NRBC Flagged by Analyzer 0 % (0-5); Neutrophil # 5.94 X10^3/uL (2.7-7.7); Neutrophil % 51.5 % (47-70); Platelet Count 258 K/mm3 (150-450); RBC Distribution Width CV 12.9 % (11.6-14.6); RBC Distribution Width SD 41.7 fl (35.1-43.9); Red Blood Count 5.03 M/mm3 (4.2-5.4); White Blood Count 11.6 K/mm3 (4.4-11.0)
[2019-09-12 01:20] LABS: D-Dimer Quantitative (DVT/PE) 0.34 FEU/ug/m (0.27-0.49)
[2019-09-12 01:23] LABS: Internal QC Validated? YES +Cl - CLEAR BKGD; Pregnancy, Serum, hCG Quali. NEGATIVE Negative
[2019-09-12 01:31] LABS: Anion Gap 5 (5-15); BUN 11 mg/dL (7-18); BUN/Creat Ratio 16.7 RATIO (10-20); Calcium,Total 8.7 mg/dL (8.5-10.1); Chloride 112 mmol/L (98-107); Creatinine, Serum 0.66 mg/dL (0.55-1.02); EST Glomerular Filtration Rate 115 mL/min (>60); Est Glom Filt Rate - Afr Amer 140 mL/min (>60); Estimated Creatinine Clearance 120.92 ml/min; Glucose 140 mg/dL (74-106); Potassium 3.5 mmol/L (3.5-5.1); Sodium Level 141 mmol/L (136-145)
--- NOTE | 2019-09-12 01:44 | ED.VISSUMM ---
- ER Visit Summary Date of Service: 09/12/19 Chief Complaint: Chest pain History of Present Illness: The patient is a [address] Gandhi. She reports that she has had pain in her left mandibular wisdom tooth for the past 2 to 3 days. She went to the [facility] today and was placed on Zithromax. She reports the pain is extending from on the left side of her jaw down into her chest. This began approximate 1 hour ago while she was at rest. She describes it as a pressure. It is 10 out of 10 at worst 9-10 currently. It is worsened by exertion relieved by remaining still. She is nauseated with this. She has not vomited. No diaphoresis or shortness of breath. Patient does have a history of DVT. No recent travel. Her last DVT was approximately 8 years ago. No ankle swelling or calf pain. She has tobacco use and a family history is her risk factors for coronary disease. She reports she is had similar symptoms previously with anxiety. Physical Examination: Vitals: Stable. Afebrile. General: Well-nourished and well-developed. Head: Normocephalic atraumatic. Mouth: Obvious caries and her left mandibular third molar. There is no focal abscess. She has no trismus or edema the floor of her mouth. There is no facial swelling or erythema. Neck: Supple, no lymphadenopathy. No JVD. Nontender. Cardiovascular: Regular rate and rhythm. No murmurs. Respiratory: No respiratory distress. Clear to auscultation bilaterally. Abdominal: Soft, nontender, nondistended, normal bowel sounds. No guarding, rebound, or peritoneal signs. Back: Nontender. Extremities: Nontender, no edema. Skin: Normal color, no rash. Neurologic: Alert and oriented ?3. Cranial nerves II through XII are intact. Normal strength and sensation. Psych: Normal affect. Test Results: EKG is sinus at [address] changes. Troponin is negative. D-dimer is negative. test is negative. Chem-7 shows a chloride 112. CBC shows a white count of 11.6. Chest x-ray is normal. Emergency Department Course and Treatment: Patient was given a dose of Toradol IV. She is resting comfortably. Treatment Plan: Had a prolonged scratch the patient that at this time I do not have an explanation for her chest pain. However, she reports that she feels improved and would like to go home. States this is similar to when she is anxiety in the past. We did discuss the fact that Zithromax is not a good choice for a dental infection. She was given a dose of clindamycin here and will be changed to clindamycin. She is instructed to follow-up with her primary care physician in 1 to 2 days if the chest pain is not improving. Return to the emergency department for any worsening symptoms. Disposition: To home in improved and stable condition. Impression: 1. Atypical chest pain. 2. Dental pain. This note was generated with [employer] dictation software. It may contain incorrect words, spelling, and punctuation that were not noted in review of the chart prior to signing ED Disposition - Plan for ED Patient: Instructions: ED Chest Pain Atypical Unkn Cause Prescriptions: Clindamycin HCl [Cleocin] 300 mg PO Q6H #28 capsule Referrals: Leelee Jackson COAGULATING OPERATOR-C [Primary Care Provider] - 1-2 Days if not improving
[2019-09-12 02:19] VITALS: BP 114/70; PULSE 78; RESP 20
[2019-09-12] MEDS: Clindamycin HCl 150 MG Capsule 300 MG PO (02:23)
== END 2019-09-12 02:24 | disposition home or self-care (01) ==
PROVIDERS: Emergency Provider Emergency Medicine; PCP Nurse Practitioner Primary Care
DX: R07.89 Other chest pain (principal); K08.89 Other specified disorders of teeth and supporting structures; Z86.718 Personal history of other venous thrombosis and embolism; Z72.0 Tobacco use
CPT/HCPCS: 71045; 80048; 84484; 84703; 85025; 85379; 93005; 96361; 96374; 99285; J7030; A4216

== ENCOUNTER 2019-11-24 23:23 | Emergency (ER) | payer MEDICAID, SELFPAY ==
[2019-11-24 23:24] VITALS: BP 161/97; PULSE 100; RESP 16; TEMP 36.6; O2SAT 97; BMI 50.1
--- NOTE | 2019-11-25 00:01 | RAD_ITS ---
STUDY: X-RAY CHEST REASON FOR EXAM: Female, 24 years old. C/O OF THORACIC SPINE PAIN 1 HOUR INSTALLATION TECHNICIAN -- NKI TECHNIQUE: PA and lateral COMPARISON: 09/12/2019 FINDINGS: The lungs are clear and expanded. There is no demonstrated pleural abnormality. Normal size heart. Normal mediastinum and heather. Normal visualized pulmonary arteries. Normal visualized aortic arch and descending thoracic aorta. Normal visualized thoracic spine. Normal visualized ribs, clavicles, and shoulders. There is no demonstrated abnormality of the visualized soft tissue structures of the upper abdomen. RAD/Chest PA and Lateral IMPRESSION: Normal x-ray examination of the chest. No interval change. Electronically Signed: Bill Pacheco, at 0:37 EDT Tel , Service support ,
--- NOTE | 2019-11-25 00:29 | ED.VISSUMM ---
- ER Visit Summary Date of Service: 11/25/19 Chief Complaint: [Back pain] History of Present Illness: The patient is a 24 F [presents to the emergency department complaint of pain in her back that started suddenly about an hour ago. Patient was sitting on the couch when she states that it felt like somebody put fire on her back. Patient complains of pain in her back when she moves her neck. She has some numbness to both shoulders. Pain is worse with movement. Pain is nonpleuritic. Denies any chest pain or shortness of breath. She is never had pain like this before. She denies any injury. There was no movement prior to the pain starting.] Physical Examination: HEENT-PERRLA, EOMI. Cranial nerves II through XII grossly intact. TMs clear. Mucous membranes moist. No adenopathy. Cardiovascular-regular rate and rhythm without murmur or ectopy Lungs-clear to auscultation, chest wall stable without crepitus or subcu emphysema Abdomen-normoactive bowel sounds, soft, nontender, no rebound or rigidity, no peritoneal signs. Back exam-patient has diffuse tenderness to palpation over the thoracic paraspinal musculature bilaterally. Negative straight leg raises. Deep tendon reflexes are plus 2 out of 4 bilaterally at the patella Achilles. Patient has normal 5 extension bilaterally. She has normal sensation to light touch. Patient has normal deep tendon reflexes in both upper extremities. Patient has normal strength in both lower upper extremities. Extremities-intact ?4, normal range of motion, normal pulses, atraumatic [] Test Results: [Chest x-ray obtained was normal. D-dimer was normal.] Emergency Department Course and Treatment: [She was given Toradol 30 mg IV.] Treatment Plan: [We will be given a prescription for Naprosyn and Flexeril. She denies anything stronger for pain. Patient advised to follow-up with her primary care physician within next 3 to 5 days.] Disposition: [Discharged home in stable condition] Impression: [Atraumatic back pain] This note was generated with [facility] software. It may contain incorrect words, spelling, and punctuation that were not noted in review of the chart prior to signing ED Disposition - Plan for ED Patient: Referrals: Leelee Jackson NP-C [Primary Care Provider] -
--- NOTE | 2019-11-25 00:31 | ED.DEP ---
ED Disposition - Plan for ED Patient: Instructions: ED Spasm Back No Trauma Prescriptions: cycloBENZAPRine HCl [Flexeril] 10 mg PO TID PRN #20 tab PRN Reason: Muscle Spasm Prescription Printed Naproxen [Naprosyn] 500 mg PO BID PRN #20 tab Prescription Printed Referrals: Leelee Jackson HEAD INSULATION BOARD SAW OPERATOR-C [Primary Care Provider] - 3-5 Days
[2019-11-25] MEDS: Ketorolac 30 MG/ML Syringe IV (00:48)
[2019-11-25 00:50] VITALS: BP 148/76; PULSE 87; RESP 18; O2SAT 99
== END 2019-11-25 00:50 | disposition home or self-care (01) ==
LOC: ED 23:49
PROVIDERS: Emergency Provider Emergency Medicine; PCP Nurse Practitioner Primary Care
DX: M54.6 Pain in thoracic spine (principal); Z72.0 Tobacco use
CPT/HCPCS: 71046; 85379; 96374; 99283; A4216

== ENCOUNTER 2020-01-19 12:23 | Emergency (ER) | payer MEDICAID, SELFPAY ==
[2020-01-19 12:24] VITALS: BP 158/91; PULSE 100; RESP 20; TEMP 36.6; O2SAT 97; BMI 49.2
--- NOTE | 2020-01-19 13:04 | RAD_ITS ---
STUDY: X-RAY - RIGHT TIBIA AND FIBULA REASON FOR EXAM: Female, 24 years old. fell down stairs today -- pain TECHNIQUE: 2 view(s) of the tibia and fibula were obtained. COMPARISON: None. FINDINGS: Normal visualized tibia. Normal visualized fibula. Operative changes of the foot/ankle partially visualized. The soft tissue structures are unremarkable. RAD/Tibia & Fibula 2 Views IMPRESSION: No fracture or malalignment. Electronically Signed: Brian Orr MD (Brooks) at 14:14 EDT , Service support ,
--- NOTE | 2020-01-19 13:04 | RAD_ITS ---
STUDY: X-RAY - RIGHT FOOT CLINICAL: Female, 24 years old. fell down stairs today -- pain TECHNIQUE: 3 view(s) of the foot. COMPARISON: 12/28/2018 FINDINGS: Fusion hardware of the calcaneus stable. Medial midfoot arthrodesis hardware stable. Normal metatarsi. Normal metatarsophalangeal joint of the great toe. Normal tibial and fibular sesamoid bones. Normal interphalangeal joint of the great toe. Normal phalanges of the great toe. Normal second through fifth metatarsophalangeal joints. Normal interphalangeal joints and phalanges of the lesser toes. The soft tissue structures are unremarkable. RAD/Foot min 3 Views IMPRESSION: 1. Stable exam. No fracture or malalignment. Electronically Signed: Brian Orr MD (Brooks) at 14:12 EDT , Service support ,
--- NOTE | 2020-01-19 13:04 | RAD_ITS ---
STUDY: X-RAY - RIGHT KNEE REASON FOR EXAM: Female, 24 years old. fell down stairs today -- pain TECHNIQUE: 4 view(s) of the knee. COMPARISON: None. FINDINGS: Normal visualized distal femur. Normal visualized proximal tibia and fibula. Normal proximal tibiofibular articulation. Normal medial femorotibial compartment. Normal lateral femorotibial compartment. Normal patellofemoral articulation. There is no demonstrated joint effusion. The soft tissue structures are unremarkable. RAD/Knee 4 or More Views IMPRESSION: No fracture or malalignment. Electronically Signed: Brian Orr MD (Brooks) at 14:13 EDT , Service support ,
--- NOTE | 2020-01-19 13:05 | RAD_ITS ---
STUDY: X-RAY - LEFT TIBIA AND FIBULA REASON FOR EXAM: Female, 24 years old. fell down stairs today -- pain TECHNIQUE: 2 view(s) of the tibia and fibula were obtained. COMPARISON: None. FINDINGS: Normal visualized tibia. Normal visualized fibula. Fixation screw of the hindfoot noted. The soft tissue structures are unremarkable. RAD/Tibia & Fibula 2 Views IMPRESSION: No fracture or malalignment. Electronically Signed: Brian Orr MD (Brooks) at 14:14 EDT , Service support ,
[2020-01-19] MEDS: Ibuprofen 600 MG Tablet PO (13:08)
--- NOTE | 2020-01-19 13:25 | ED.DCSUM_ITS ---
History of Present Illness Chief Complaint: Lower Extremity Injury Informant: Patient Occurred: Today Mechanism/Context: Fall Narrative: Patient is a 24 year old female with no significant past medical history presenting from home for evaluation of foot injury after a fall. She fell down a flight of stairs after she tripped on her son's toy car which he left on the stairs. Patient can tumbled down the stairs but did not hit her head. She is complaining mostly of right lower leg pain but also some pain in her left knee. She is on any anticoagulation. This happened just prior to arrival. She took a Tylenol at home prior to coming in. She denies associated numbness or tingling. She notes that she has had multiple foot surgeries by Dr. Brenner in [place]. She denies any other complaints at this time. She is not on anticoagulation. Patient states she is not concerned for . Past Medical History - Allergies and Home Meds Allergies/Adverse Reactions: Allergies docusate [From Colace] Allergy (Verified 01/19/20 12:24) Hives Penicillins Allergy (Verified 01/19/20 12:24) Anaphylaxis Primary Care Physician: Leelee Jackson NP-C [Primary Care Provider] - Past Medical History: None Surgical History: noncontributory, - - Multiple foot surgeries Lives: With Family Smoking Status: Current every day smoker Review of Systems General: Denies: Chills, Fever, Sweats Eyes: Denies: Visual changes - bilaterally, Diplopia ENT: Denies: Rhinorrhea, Sore throat Cardiovascular: Denies: Chest pain, Palpitations Respiratory: Denies: Dyspnea, Cough, Dyspnea on exertion Gastrointestinal: Denies: Abdominal pain, Nausea, Hematochezia Musculoskeletal: Reports: Swelling - Right ankle, Extremity Pain - Bilateral lower extremities, right greater than left. Denies: Back pain Skin: Denies: Rash, Abrasions, Wounds Neurological: Denies: Headache, Weakness, Numbness Physical Exam Vital Signs/Narrative: Vital Signs Temp Pulse Resp BP Pulse Ox 01/19/20 12:24 97.8 F 100 20 H 158/91 H 97 Inital Vital Signs reviewed: Yes - Extremity Exam Right Pelvis: Negative for: Deformity, Edema Left Pelvis: Negative for: Deformity, Edema Right Hip: Negative for: Deformity, Edema Left Hip: Negative for: Deformity, Edema Right Femur: Negative for: Deformity, Edema, Limited ROM Left Femur: Negative for: Deformity, Edema, Limited ROM Right Knee: - - Tenderness to palpation diffusely of the right knee, no associated effusion noted.. Negative for: Limited ROM Left Knee: Negative for: Deformity, Edema, Limited ROM Right Tib fib: Negative for: Contusion, Deformity, Limited ROM Left Tib Fib: - - Tenderness to palpation of the proximal fibular head. N egative for: Contusion, Deformity, Limited ROM Left Ankle: Edema, Limited ROM, - - Palpation over the lateral aspect of the ankle with bony tenderness of the lateral malleolus Right Foot: Edema, - - Tenderness to palpation over the base of the fifth metatarsal and lateral midfoot. Negative for: Contusion, Deformity, Hematoma, Limited ROM Left Foot: Negative for: Contusion, Deformity, Edema, Hematoma, Limited ROM General: Well nourished, Well developed, Obese Head: Normocephalic, Atraumatic Eyes: Perrl, EOMI ENT: No Trauma, Moist Mucous Membranes, - - No hemotympanum Neck: Nontender, Full ROM. Negative for: Spinal Tenderness, Paraspinal Tenderness Cardiovascular: Regular rate, Regular rhythm, No murmurs Respiratory: No distress, CTA bilaterally, Chest nontender Abdomen: Soft, Nontender, Nondistended, Normal bowel sounds Back: Nontender. Negative for: CVA Tenderness - Right, CVA Tenderness - Left, Spinal Tenderness, Paraspinal Tenderness Skin: Normal color, No rash Neurological: Alert, Oriented x3, Cranial nerves II-XII grossly intact, Normal Strength, Normal Sensation Psychological: Normal affect Diagnostic/Tx/Re-eval Clinical Impression(s) from Imaging Studies Foot X-Ray 01/19/20 13:04 IMPRESSION: 1. Stable exam. No fracture or malalignment. Electronically Signed: Brian Orr MD (Brooks) at 14:12 EDT , Service support , Knee X-Ray 01/19/20 13:04 IMPRESSION: No fracture or malalignment. Electronically Signed: Brian Orr MD (Brooks) at 14:13 EDT , Service support , Tibia/Fibula X-Ray 01/19/20 13:04 IMPRESSION: No fracture or malalignment. Electronically Signed: Brian Orr MD (Brooks) at 14:14 EDT , Service support , Tibia/Fibula X-Ray 01/19/20 13:05 IMPRESSION: No fracture or malalignment. Electronically Signed: Brian Orr MD (Brooks) at 14:14 EDT , Service support , Ankle X-Ray 01/19/20 14:36 IMPRESSION: No acute fracture or malalignment. Electronically Signed: Brian Orr MD (Brooks) at 14:55 EDT , Service support , - Medical Decision Making Patient is evaluated for lower extremity pain after mechanical fall. She has swelling of her right ankle on exam with associated tenderness to palpation of the lateral aspect. Patient also has tenderness over her bilateral knees and specifically her left fibular head. X-rays are all obtained which show some mild soft tissue swelling but no acute fracture. Patient be given a splint for her right ankle and discharged home with symptomatic treatment including Motrin and Tylenol. Patient is counseled on signs and symptoms requiring return to the emergency room. Patient verbalizes agreement and understand this plan. Patient discharged home in stable and improved condition. ED Disposition - Plan for ED Patient: Disposition: Home or Assisted Living Diagnosis: Fall down stairs, Right ankle sprain Instructions: ED Sprain Ankle W X Ray Referrals: Leelee Jackson NP-C [Primary Care Provider] - Additional Instructions: Alternate Tylenol and ibuprofen as needed for pain. Return the emergency room with difficulty walking or worsening symptoms. Also follow-up with your specialist in [place] if you choose to.
--- NOTE | 2020-01-19 14:36 | RAD_ITS ---
STUDY: X-RAY - RIGHT ANKLE REASON FOR EXAM: Female, 24 years old. RIGHT LEG PAIN AFTER FALLING DOWN STAIRS THIS MORNING -- PREVIOUS SURGERY 2005, 2006, 2007 TECHNIQUE: 3 view(s) of the ankle. COMPARISON: None. FINDINGS: Normal visualized distal tibia and fibula. Normal medial and lateral malleoli. Normal tibiotalar articulation and ankle mortise. Normal visualized talus and calcaneus. Fusion/surgical hardware of the hind and midfoot described on foot x-ray. The soft tissue structures are unremarkable. RAD/Ankle min 3 Views IMPRESSION: No acute fracture or malalignment. Electronically Signed: Brian Orr MD (Brooks) at 14:55 EDT , Service support ,
== END 2020-01-19 15:40 | disposition home or self-care (01) ==
PROVIDERS: Emergency Provider Emergency Medicine; PCP Nurse Practitioner Primary Care
DX: S93.401A Sprain of unspecified ligament of right ankle, initial encounter (principal); W18.09XA Striking against other object with subsequent fall, initial encounter; Y93.01 Activity, walking, marching and hiking; Y92.009 Unspecified place in unspecified non-institutional (private) residence as the place of occurrence of the external cause; Y99.8 Other external cause status; F17.200 Nicotine dependence, unspecified, uncomplicated
CPT/HCPCS: 73564; 73590; 73610; 73630; 99283

== ENCOUNTER 2020-04-25 16:00 | Emergency (ER) | payer MEDICAID, SELFPAY ==
[2020-04-25 16:01] VITALS: BP 148/60; PULSE 92; RESP 16; TEMP 36.7; O2SAT 99; BMI 46.3
--- NOTE | 2020-04-25 16:21 | RAD_ITS ---
STUDY: X-RAY - RIGHT FOOT CLINICAL: Female, 24 years old. [place] a pop in foot at work, Hx of surgery for club foot TECHNIQUE: 3 view(s) of the foot. COMPARISON: 01/19/2020 FINDINGS: There is a stable plate and screw fixation device within the calcaneus. There is stable medial midfoot arthrodesis post surgical changes. Normal metatarsophalangeal joint of the great toe. Normal interphalangeal joint of the great toe. Normal phalanges of the great toe. Normal second through fifth metatarsophalangeal joints. Normal interphalangeal joints and phalanges of the lesser toes. The soft tissue structures are unremarkable. RAD/Foot min 3 Views IMPRESSION: Stable examination demonstrating no acute osseous injury. Electronically Signed: Torie Perla MD at 17:13 EST Tel , Service support ,
--- NOTE | 2020-04-25 16:25 | RAD_ITS ---
STUDY: X-RAY - RIGHT ANKLE REASON FOR EXAM: Female, 24 years old. [place] a pop in foot at work, Hx of surgery for club foot TECHNIQUE: 3 view(s) of the ankle. COMPARISON: 01/19/2020 FINDINGS: Normal visualized distal tibia and fibula. Normal medial and lateral malleoli. Normal tibiotalar articulation and ankle mortise. There are stable postsurgical changes within the mid and hindfoot. The soft tissue structures are unremarkable. RAD/Ankle min 3 Views IMPRESSION: No acute osseous injury. Electronically Signed: Torie Perla MD at 16:42 EST Tel , Service support ,
--- NOTE | 2020-04-25 16:34 | ED.DCSUM_ITS ---
- ER Visit Summary Date of Service: 04/25/20 Chief Complaint: Right ankle pain History of Present Illness: The patient is a 24 F patient has a history of right side Achilles tendon [facility] [place] [facility] [facility]. She had sudden onset of right Achilles pain today. [place] like she was hit. She feels a knot there. Physical Examination: Afebrile and vital signs unremarkable. Mild swelling to the right ankle. On palpation, there is tenderness over the Achilles. It does feel like there is a defect in the tendon. Neurovascular intact distally. Test Results: Foot and ankle x-rays pending. Emergency Department Course and Treatment: Patient declined pain medicine. X-rays reviewed by me were negative. Patient will be placed in a boot orthosis. We do not have the wedges for appropriate positioning for presumed Achilles tendon rupture. Patient will follow up with her orthopedic doctor on Monday. Return for any complications. Treatment Plan: As above Disposition: Discharge Impression: Right Achilles tendon rupture This note was generated with [employer] dictation software. It may contain incorrect words, spelling, and punctuation that were not noted in review of the chart prior to signing ED Disposition - Plan for ED Patient: Referrals: Leelee Jackson NP, CAP AND HAT PRODUCTION SUPERVISOR-C [Primary Care Provider] -
--- NOTE | 2020-04-25 17:21 | ED.DEP ---
ED Disposition - Plan for ED Patient: Instructions: ED Tendon Rupture Achilles Additional Instructions: Follow up with Dr Brenner in [place]
== END 2020-04-25 17:46 | disposition home or self-care (01) ==
LOC: ED 16:30
PROVIDERS: Emergency Provider Emergency Medicine; PCP Nurse Practitioner Primary Care
DX: S86.011A Strain of right Achilles tendon, initial encounter (principal); X58.XXXA Exposure to other specified factors, initial encounter; Z87.891 Personal history of nicotine dependence
CPT/HCPCS: 73610; 73630; 99283

== ENCOUNTER → 2020-05-15 17:39 | Outpatient (CLI) | payer MEDICAID, SELFPAY ==
[2020-04-25 16:01] VITALS: BMI 46.3
--- NOTE | 2020-05-15 18:15 | MRI_ITS ---
History: RIGHT ankle pain (achilles area), injury. Patient has a history of flat foot reconstruction including posterior heel cord lengthening. Monday she was walking when she felt a snap in the back of her leg. She was able to bear weight following injury. MRI EXAMINATION OF THE Right ANKLE COMPARISON: Radiographs of the right ankle obtained on April 25, 2020 TECHNIQUE: Axial T1, T2 and fat-suppressed T2, oblique axial STIR, sagittal STIR and sagittal T1. The fat-suppressed coronal and sagittal images are limited due to metallic artifact # of images including paperwork:196 FINDINGS: BONES; no acute fracture or marrow edema. Postsurgical changes are seen within the calcaneus as well as the navicular and the navicular medial cuneiform and first metatarsal base. The tarsometatarsal joints are poorly visualized due to metallic artifact. Spurring of the talus at the angle of Gissanne extending anteriorly seen on sagittal image 14 series 6 TIBIOTALAR JOINT: There is a minimal tibiotalar joint effusion. Slight thinning of the articular cartilage of the talar dome at the med talar bone seen best in image 11 series 7 extending approximately 3.4 mm AP... No loose bodies. SUBTALAR JOINT: There is minimal subtalar joint effusion. Osteochondral sufaces are intact. No loose bodies. LIGAMENTS: The anterior tibiofibular ligament is intact. The posterior tlbiofilular ligament is intact The anterior talofibular ligament appears irregular with areas of thinning and thickening suggesting chronic partial tear. There is fluid surrounding the ligament The posterior talofibular ligament is intact. The calcaneofibular ligament is intact. The deltoid ligaments are intact. There does appear to be thickening of the spring ligament suggesting chronic sprain The ligaments of the tarasal sinus are not well visualized on this study. TENDONS: The flexor tendons are unremarkable. The extensor tendons are unremarkable. The peroneal tendons appear displaced laterally from the posterior aspect of the fibula. The peroneus brevis appears flattened just distal to the fibula. . There is a rounded appearance to the Achilles tendon that is centered approximately 4.8 cm proximal to the insertion. No significant increased signal is noted. This compatible with tendinosis. There may be minimal peritendinitis adjacent to this area of the Achilles tendon PLANTAR APONEUROSIS: The plantar aponeurosis is unremarkable. NEUROVASCULAR STRUCTURES: The posterior tibial neurovascular bundle appears normal, without intinsic or extrinsic masses or foci or signal alteration. IMPRESSION: Thickening of the Achilles tendon as discussed. This is compatible with tendinosis and probably minimal peritendinitis Probable chronic sprain with irregularity of the anterior talofibular ligament with associated effusion Thickening of the spring ligament suggesting chronic sprain Lateral displacement of the left peroneal tendons from the posterior aspect of the fibula. The peroneus brevis appears flattened just distal to the fibula Minimal tibiotalar joint effusion and slight thinning of the articular cartilage at the mid talar dome as discussed There is spurring of the talus at the angle of Gissanne Orthopedic hardware is seen within the calcaneus as well as the distal tarsal bones and first tarsometatarsal joint at 0115 Reported and signed by: Manju Fabian DO Electronically Signed: Manju Fabian DO at 1:14 EST Tel , Service support , MRI/Lower Ext Joint Only (Routine)
== END ==
PROVIDERS: PCP Nurse Practitioner Primary Care
DX: S86.011A Strain of right Achilles tendon, initial encounter (principal)
CPT/HCPCS: 73721

== ENCOUNTER → 2021-04-19 11:12 | Outpatient (CLI) | payer MEDICAID, SELFPAY ==
[2021-04-19 12:37] LABS: HIV - WCH Non-Reactive (Nonreactive); Hepatitis B Surface Antigen Non-Reactive (Nonreactive); Hepatitis C Antibody Non-Reactive (Nonreactive); Syphilis Antibodies Non-reactive
[2021-04-21 00:06] LABS: Chlamydia By Nucleic Acid AMP Negative (Negative)
[2021-04-21 10:01] LABS: Gonococcus By Nucleic Acid AMP Negative (Negative)
[2021-04-23 13:22] LABS: HPV Reflexed? NOT INDICATED
== END ==
PROVIDERS: PCP Nurse Practitioner Primary Care; Visit Provider Obstetrics & Gynecology
DX: Z11.3 Encounter for screening for infections with a predominantly sexual mode of transmission (principal); Z12.4 Encounter for screening for malignant neoplasm of cervix
CPT/HCPCS: 36415; 86703; 86780; 86803; 87340; 87491; 87591; 88175; G0145

== ENCOUNTER → 2021-05-07 | Outpatient (CLI) | payer MEDICAID, SELFPAY ==
--- NOTE | 2021-05-07 | IMM_PTH ---
PATIENT: ELEUTERIO FRAGA LOC: [facility] U#:[id number] AGE/SX: 25/F ROOM: RE05/07/[address]: Dr. Chicho Turner MD : 1995 BED: DIS: 05/07/2021 SPEC #: [id number] RECD: 05/10/21 13:31 STATUS: BO REBowen #: [id number] BARRIE: 05/07/21 00:[address]: Chicho Turner DEPT: IMMUNOHISTOCHEMISTRY RECD BY: Sharmaine Roberts ENTERED: 05/10/21 13:32 SP TYPE: IMMUNO OTHR DR: Leelee Jackson, MOLD CLEANING AND STORAGE SUPERVISOR-C Tissues: A - Endocervical B - Uterine cervix, NOS Procedures: p16 (initial) KI-67 (add) PHYSICIAN & INSTITUTION [place] [id number] SPECIMEN INFORMATION: Tissue Source: A ? Endocervix, curettings, B ? Cervix, biopsies Clinical Info: BARTOLOME Specimen Number: [id number] A & B CPT code: 50110 x2, 99741 x2 METHODOLOGY: Deparaffinized sections of prefer/formalin-fixed tissue or PAP/DQ stained slides are incubated with monoclonal/polyclonal antibodies/oligonucleotide probes. Localization is made via biotin free immunoperoxidase method. Appropriate controls are performed and reacted as expected. Results on target cell population are indicated in the following table: RESULTS: ANTIBODY / CLONE RESULT Block A P16 (E6H4) * Ki-67 (30-9) * Block B P16 (E6H4) negative Ki-67 (30-9) negative These tests were developed and their performance characteristics determined by [facility]. They may not have been cleared or approved by the U.S. Food and Drug Administration. The FDA has determined that such clearance or approval is not necessary. The above immunohistochemical/dualISH markers are ordered and reviewed by the Pathologist. INTERPRETATION: A. Endocervix, curettings: Suspicious for HPV change. B. Cervix, biopsies: No evidence of dysplasia. AM:ratna 05/11/2021 *?Diagnostic material rare.
--- NOTE | 2021-05-07 09:15 | CER_PTH ---
PATIENT: ELEUTERIO FRAGA LOC: [facility] U#:[id number] AGE/SX: 25/F ROOM: RE05/07/[address]: Dr. Chicho Turner MD : 1995 BED: DIS: 05/07/2021 SPEC #: [id number] RECD: 05/07/21 13:16 STATUS: BO KATHY #: [id number] BARRIE: 05/07/21 09:[address]: Chicho Turner DEPT: SURGICAL PATHOLOGY RECD BY: Linda Becerril ENTERED: 05/07/21 13:42 SP TYPE: CERV OTHR DR: Leelee Jacksno, JOLLY-Jeronimo Tissues: A - Endocervical B - Uterine cervix, NOS Procedures: Surgery Specimen Level IV HEADER OPERATION: Colposcopy PRE-OP DIAGNOSIS: LGSIL TISSUE SUBMITTED: A ? ECC, B ? 1, 5, 7, 11 MICROSCOPIC DIAGNOSIS A. Endocervix, curettings (cell block): Endocervix with squamous metaplasia and focal HPV change. See comment. B. Cervix, biopsies: Benign squamous mucosa. No evidence of dysplasia. See comment. AM:ratna 05/10/2021 COMMENT A & B. Results from immunohistochemistry ([id number]) for surrogate HPV marker (p16) will be reported separately. MICROSCOPIC DESCRIPTION Slides are reviewed. GROSS DESCRIPTION A - Received in fixative is one container labeled with the patient's name and designated ECC. The specimen consists of 20 cc of mosquera, clear fluid submitted for cell block. B - Received in fixative is one container labeled with the patient's name and designated 1, 5, 7, 11 cervical. The specimen consists of multiple irregular fragments of light mosquera soft tissue that in aggregate measure 1 x 0.7 x 0.2 cm. The specimen is totally submitted in one cassette. / SJ:ratna 05/07/21 TC:5 CPT: 96465 x2
== END | disposition home or self-care (01) ==
LOC: LABSPEC 12:09
PROVIDERS: PCP Nurse Practitioner Primary Care; Visit Provider Obstetrics & Gynecology
DX: R87.612 Low grade squamous intraepithelial lesion on cytologic smear of cervix (LGSIL) (principal)
CPT/HCPCS: 88305; 88341; 88342

== ENCOUNTER 2022-03-30 10:52 | Emergency (ER) | payer MEDICAID, SELFPAY ==
[2022-03-30 10:53] VITALS: BP 126/66; PULSE 83; RESP 14; TEMP 36.6; O2SAT 100; BMI 41.1
--- NOTE | 2022-03-30 11:15 | RAD_ITS ---
STUDY: X-RAY - LEFT SHOULDER REASON FOR EXAM: Female, 26 years old. Injury TECHNIQUE: 4 view(s) of the shoulder. COMPARISON: None. FINDINGS: Normal glenohumeral articulation. Normal acromioclavicular joint. Normal acromion. Normal humeral head and visualized proximal humerus. The soft tissue structures are unremarkable. Normal visualized pulmonary apex. RAD/Shoulder min 2 Views IMPRESSION: Normal x-ray examination of the shoulder. Electronically Signed: Roc Coleman MD at 11:49 EDT ,
[2022-03-30 12:30] VITALS: BP 124/78; PULSE 88; RESP 16; TEMP 37.1; O2SAT 100
--- NOTE | 2022-03-30 12:30 | EDS_ITS ---
HPI History of Present Illness Chief Complaint: Upper Extremity Injury Detail of Chief Complaint: Left shoulder injury Informant: patient Narrative Narrative: Patient is a urgency department complaint of left shoulder injury. 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 Patient since that time has been having pain with range of motion at the shoulder and pain into her upper back and neck. Patient does not want to file this under Workmen's Comp. Patient is right-hand dominant. PFSH PFSH Medical History no medical history Home Medications hydrocodone-acetaminophen 5-325mg 5mg-325mg 1 tab PO Q4H PRN PRN Pain 2 days #10 TABLETS 03/30/22 [Rx Last Taken Unknown] Allergy/AdvReac Type Severity Reaction Status Date / Time docusate [From Colace] Allergy Hives Verified 03/30/22 10:53 Penicillins Allergy Anaphylaxis Verified 03/30/22 10:53 Surgical History no surgical history Social History Smoking Status: Former smoker ROS ROS ED Review of Systems ROS Unobtainable: other Constitutional Constitutional ED: Reports lethargy; Denies chills, fever(s), sweats or weight loss Eyes Eyes: Denies blurry vision, change in vision or diplopia ENT ENT ED: Denies rhinorrhea or sore throat Cardiovascular Cardiovascular: Denies chest pain, orthopnea or racing heartbeat Respiratory/Chest Respiratory/Chest: Denies cough, dyspnea, dyspnea on exertion, orthopnea or sputum Gastrointestinal Gastrointestinal: Denies abdominal pain, diarrhea, nausea or vomiting Genitourinary Genitourinary ED: Denies dysuria, hematuria or urinary frequency Musculoskeletal Musculoskeletal: Reports other Details: Right shoulder pain ; Denies arthralgias, back pain, myalgias or neck pain Integumentary Denies abscess, Abrasions or rash Neurologic Neurologic: Denies headache(s) or weakness Psychiatric Psychiatric: Denies anxiety, depression or suicidal thoughts Endocrine Endocrinology: Denies polydipsia, polyphagia or polyuria Hematologic/Lymphatic Hematologic/Lymphatic: Denies easy bleeding, easy bruising or lymphadenopathy Allergic/Immunologic Allergic/Immunologic ED: Denies mouth swelling, tongue swelling or urticaria EXAM Physical Exam Const Vital Signs: 03/30/22 10:53 Temperature 97.9 F Temperature Source Temporal Pulse Rate 83 Respiratory Rate 14 Blood Pressure 126/66 H Blood Pressure Mean 86 Pulse Ox 100 Oxygen Delivery Method Room Air Positive well nourished and well developed General Appearance ED: well developed and NAD HEENT Reports TM's clear and moist mucous membranes normocephalic and atraumatic; Negative for trauma or tenderness Tympanic Membrane ED: Yes TM's clear Eyes PERRL and EOMs intact bilaterally General Eye ED: Negative for pale conjunctiva or scleral icterus Neck no lymphadenopathy, supple and no JVD General: Negative for tenderness Chest Wall inspection of chest normal and palpation of chest normal Chest: Negative for tenderness Resp normal respiratory effort and clear to auscultation bilaterally Effort and Inspection: Negative for respiratory distress or pain with movement Auscultation: Negative for rhonchi, wheezes or diminished lung sounds Cardio regular rate, regular rhythm, S1 normal heart sound, S2 normal heart sound and no murmurs Peripheral Pulses: pulses 2+ throughout GI normal to inspection, nondistended, normoactive bowel sounds, soft to palpation, non-tender, non-distended and no masses Back/Spine no CVA tenderness and no thoracic nor lumbar tenderness Extremity Extremity Narrative: Evaluation of the left shoulder reveals the patient holds the arm abducted and flexed at the elbow. She has pain with abduction of the shoulder. Patient has tenderness diffusely about the glenohumeral joint as well as the trapezius and supraspinatus and infraspinatus muscles. Patient neurovascularly intact. Negative sulcus sign. General Extremety ED: Negative for edema General Extremity: Negative for edema Neuro oriented x3, CN's II-XII intact bilaterally, no sensory deficits noted and gait normal Sensorium / Orientation: awake, alert, oriented to person, oriented to place and oriented to time Motor Exam: strength 5/5 throughout and strength abnormal Psych mental status grossly normal Skin no rashes or lesions noted and no wounds MDM MDM MDM Narrative Medical decision making narrative: Patient's x-rays of the left shoulder were unremarkable. At this point I suspect likely soft tissue injury. She will be given a sling. She will be given referral to orthopedics for follow-up. I will write her a prescription for few [place] for pain as ibuprofen and Tylenol have not helped her discomfort much. She understands I cannot rule out rotator cuff injury without further imaging such as MRI which will need to be performed as an outpatient. Radiography Diagnostic Testing: Clinical Impression(s) from Imaging Studies Shoulder X-Ray 10/26/22 11:15 IMPRESSION: Normal x-ray examination of the shoulder. Electronically Signed: Roc Coleman MD at 11:49 EDT , 2 view x-rays of the left shoulder obtained interpreted by myself as no acute fractures or dislocations. Radiology in agreement. Discharge Plan Triage Chief Complaint: Upper Extremity Injury ED Provider: Beverly Kimbrough Dx/Rx/DC Orders Clinical Impression: Sprain of left shoulder Instructions: ED Shoulder Sprain Prescriptions: New hydrocodone-acetaminophen [hydrocodone-acetaminophen] 5-325 mg tablet 1 tab PO Q4H PRN PRN (Reason: Pain) 2 Days Qty: 10 0RF Primary Care Provider: Leelee Jackson NP Referrals: Ivan Turner MD [Med Staff - Active Staff] - 3-5 Days Leelee Jackson NP, GEOPHYSICAL PROSPECTING SURVEYOR-C [Primary Care Provider] - Disposition Disposition: Home, Self Care
== END 2022-03-30 12:41 | disposition home or self-care (01) ==
PROVIDERS: Emergency Provider Emergency Medicine; PCP Nurse Practitioner Primary Care; Visit Provider Emergency Medicine
DX: S43.402A Unspecified sprain of left shoulder joint, initial encounter (principal); M54.9 Dorsalgia, unspecified; Z87.891 Personal history of nicotine dependence; X50.1XXA Overexertion from prolonged static or awkward postures, initial encounter; Y99.0 Civilian activity done for income or pay
CPT/HCPCS: 73030; 99283

== ENCOUNTER 2022-10-28 15:10 | Emergency (ER) | payer MEDICAID, SELFPAY ==
[2022-10-28 15:11] VITALS: BP 141/116; PULSE 118; RESP 24; TEMP 36.6; O2SAT 99; BMI 37.8
[2022-10-28 16:07] LABS: Mucous, Urine 0 SEEN /hpf (<or=2+)
[2022-10-28 16:11] LABS: Absolute Lymphocyte Count 2.33 X10^3/uL (0.83-4.51); Absolute Neutrophil Count 8.6 X10^3/uL (2.0-7.7); Basophil# 0.05 X10^3/uL; Basophil% 0.4 % (0-1); Eosinophil# 0.51 X10^3/uL; Eosinophils% 4.2 % (0-5); Hematocrit 47.8 % (37-47); Hemoglobin 15.5 g/dL (12.0-15.0); Lymphocyte # 2.33 X10^3/ul (0.83-4.51); Lymphocyte % 19.3 % (19-41); Mean Corp Hgb Conc 32.4 g/dL (32-36); Mean Corpuscular Hgb 28.6 pg (27.0-32.0); Mean Corpuscular Volume 88.2 fL (81-99); Mean Platelet Vol. 11.1 fl (6.2-12.0); Monocyte# 0.56 X10^3/uL; Monocyte% 4.6 % (0-10); NRBC Flagged by Analyzer 0 % (0-5); Neutrophil # 8.56 X10^3/uL (2.7-7.7); Platelet Count 266 K/mm3 (150-450); RBC Distribution Width CV 12.6 % (11.6-14.6); RBC Distribution Width SD 40.6 fl (35.1-43.9); Red Blood Count 5.42 M/mm3 (4.2-5.4); White Blood Count 12.1 K/mm3 (4.4-11.0)
[2022-10-28 16:22] LABS: Color, Urine Yellow (Yellow); Glucose, Dipstick Normal (Normal); Ketone-Dipstick 5 mg/dl (Negative); Leukocyte Esterase-Dipstick 500 /ul (Negative); Nitrite-Dipstick Negative (Negative); Occult Blood-Urine 25 /ul (Negative); Protein-Dipstick 30 mg/dl (Negative); Specific Gravity, Urine 1.025 (1.002-1.030); Urine Bilirubin Dipstick Negative (Negative); Urine Clarity Sl. Cloudy (Clear); Urine Urobilinogen Normal (Normal)
[2022-10-28 16:24] LABS: Internal QC Validated? YES +Cl - CLEAR BKGD; Pregnancy, Serum, hCG Quali. NEGATIVE Negative
[2022-10-28 16:26] LABS: Anion Gap 8 (5-15); BUN 10 mg/dL (7-18); BUN/Creat Ratio 13.8 RATIO (10-20); Calcium,Total 8.9 mg/dL (8.5-10.1); Chloride 112 mmol/L (98-107); Creatinine, Serum 0.73 mg/dL (0.55-1.02); EST Glomerular Filtration Rate 101 mL/min (>60); Est Glom Filt Rate - Afr Amer 122 mL/min (>60); Estimated Creatinine Clearance 106.45 ml/min; Glucose 100 mg/dL (74-106); Potassium 3.9 mmol/L (3.5-5.1); Sodium Level 142 mmol/L (136-145)
[2022-10-28 16:29] LABS: Amphetamine Urine VISTA NEGATIVE (<1000 ng/mL); Barbiturate Urine VISTA NEGATIVE (< 200 ng/mL); Benzodiazepine Urine VISTA NEGATIVE (< 200 ng/mL); Cocaine Urine VISTA NEGATIVE (< 300 ng/mL); Ecstacy Urine VISTA NEGATIVE (< 500 ng/mL); Methadone Urine VISTA NEGATIVE (< 300 ng/mL); PCP Urine VISTA NEGATIVE (< 25 ng/mL); THC Urine VISTA POSITIVE (< 50 ng/mL); Vista UDS pH Range 4
[2022-10-28 16:38] VITALS: BP 149/99; PULSE 109; RESP 20; O2SAT 97
--- NOTE | 2022-10-28 16:39 | EDS_ITS ---
HPI HPI - Psych History of Present Illness Chief Complaint: Suicidal Narrative Narrative: 27-year-old female past medical history of depression, currently not taking medications presents with suicidal ideation. She states that it is over everything. PFSH PFSH Medical History no medical history Home Medications hydrocodone-acetaminophen 5-325mg 5mg-325mg 1 tab PO Q4H PRN PRN Pain 2 days #10 TABLETS 03/30/22 [Rx Last Taken Unknown] Allergy/AdvReac Type Severity Reaction Status Date / Time docusate [From Colace] Allergy Hives Verified 10/28/22 15:14 lamotrigine [From Lamictal] Allergy Rash Verified 10/28/22 16:31 Penicillins Allergy Anaphylaxis Verified 10/28/22 15:14 Social History Smoking Status: Former smoker EXAM Physical Exam Const Vital Signs: 10/28/22 15:11 10/28/22 16:38 10/28/22 20:00 Temperature 97.8 F Temperature Source Temporal Pulse Rate 118 H 109 H 87 Respiratory Rate 24 H 20 H 18 Blood Pressure 141/116 H 149/99 H 118/80 Blood Pressure Mean 124 115 92 Pulse Ox 99 97 99 Oxygen Delivery Method Room Air Room Air Room Air MDM MDM MDM Narrative Medical decision making narrative: I reviewed the patient's laboratory work, she has slightly elevated white count of 12.1 which I think is nonspecific, hemoglobin slightly hemoconcentrated at 15.5 with hematocrit 47.8. Platelet count is normal at 266. Urinalysis shows 5-10 WBCs but there are squamous epithelial cells. I think this is a contaminated specimen and I do not feel that antibiotics are indicated. BMP shows chloride of 112. hCG is negative. Ethyl alcohol also negative. Urine for drugs of abuse is positive for cannabinoids. EKG was obtained and interpre charlie by myself as normal sinus rhythm with sinus arrhythmia at 76 bpm without ectopy or acute ST changes. No STEMI. I do feel that she has been cleared medically for evaluation. At approximately 2109, I was approached by staff because the patient began yelling and screaming that was audible. She was throwing objects at the staff stating that they were making her feel like she wanted to kill herself even more. She was not redirectable. I do feel that she required an antipsychotic in the form of Geodon 20 mg intramuscularly. At this point in time, she will be signed out to the oncoming physician to make final disposition on this patient which I anticipate will now be placement in a psychiatric facility. Disposition is pending. She has a stable condition. History & Record Review Discussion w/independent historian: Patient Additional record(s) reviewed:: Prior ED visit (Noncontributory to current chief complaint.) Lab Data Attestation: I reviewed the patient's lab results. Labs: Laboratory Results - last 24 hr 10/28/22 10/28/22 10/28/22 15:50 15:50 15:55 WBC 12.1 H RBC 5.42 H Hgb 15.5 H Hct 47.8 H MCV 88.2 MCH 28.6 MCHC 32.4 RDW Std Deviation 40.6 RDW Coeff of Jerrell 12.6 Plt Count 266 MPV 11.1 Immature Gran % (Auto) 0.500 Neut % (Auto) 71.0 H Lymph % (Auto) 19.3 Blount % (Auto) 4.6 Eos % (Auto) 4.2 Baso % (Auto) 0.4 Absolute Neuts (auto) 8.6 H Absolute Lymphs (auto) 2.33 Nucleated RBC % 0 Sodium Potassium Chloride Carbon Dioxide Anion Gap BUN Creatinine Estim Creat Clear Calc Est GFR (MDRD) Af Amer Est GFR (MDRD) Non-Af BUN/Creatinine Ratio Glucose Calcium Serum , Qual Urine Color Yellow Urine Clarity Sl. Cloudy Urine pH 5.0 Ur Specific [place] 1.025 Urine Protein 30 H Urine Glucose (UA) Normal Urine Ketones 5 H Urine Occult Blood 25 H Urine Nitrite Negative Urine Bilirubin Negative Urine Urobilinogen Normal Ur Leukocyte Esterase 500 H Urine RBC 0-5 SEEN Urine WBC 5-10 SEEN Ur Squamous Epith Cells 5-10 SEEN Urine Bacteria 2+ Urine Mucus 0 SEEN Urine Opiates Screen NEGATIVE Urine Methadone Screen NEGATIVE Ur Barbiturates Screen NEGATIVE Ur Phencyclidine Scrn NEGATIVE Ur Amphetamines Screen NEGATIVE MDMA (Ecstasy) Screen NEGATIVE U Benzodiazepines Scrn NEGATIVE Urine Cocaine Screen NEGATIVE U Cannabinoids Screen POSITIVE H Ur Drug Screen Comment Ethyl Alcohol 10/28/22 10/28/22 10/28/22 15:55 15:55 15:55 WBC RBC Hgb Hct MCV MCH MCHC RDW Std Deviation RDW Coeff of Jerrell Plt Count MPV Immature Gran % (Auto) Neut % (Auto) Lymph % (Auto) Blount % (Auto) Eos % (Auto) Baso % (Auto) Absolute Neuts (auto) Absolute Lymphs (auto) Nucleated RBC % Sodium 142 Potassium 3.9 Chloride 112 H Carbon Dioxide 22.0 Anion Gap 8 BUN 10 Creatinine 0.73 Estim Creat Clear Calc 106.45 Est GFR (MDRD) Af Amer 122 Est GFR (MDRD) Non-Af 101 BUN/Creatinine Ratio 13.8 Glucose 100 Calcium 8.9 Serum , Qual NEGATIVE Urine Color Urine Clarity Urine pH Ur Specific [place] Urine Protein Urine Glucose (UA) Urine Ketones Urine Occult Blood Urine Nitrite Urine Bilirubin Urine Urobilinogen Ur Leukocyte Esterase Urine RBC Urine WBC Ur Squamous Epith Cells Urine Bacteria Urine Mucus Urine Opiates Screen Urine Methadone Screen Ur Barbiturates Screen Ur Phencyclidine Scrn Ur Amphetamines Screen MDMA (Ecstasy) Screen U Benzodiazepines Scrn Urine Cocaine Screen U Cannabinoids Screen Ur Drug Screen Comment Ethyl Alcohol 8.0 Discharge Plan Triage Chief Complaint: Suicidal ED Provider: Derian Craig Dx/Rx/DC Orders Prescriptions: No Action hydrocodone-acetaminophen [hydrocodone-acetaminophen] 5-325 mg tablet 1 tab PO Q4H PRN PRN (Reason: Pain) 2 Days Qty: 10 0RF Primary Care Provider: Leelee Jackson BEHAVIOR MANAGEMENT SPECIALIST Referrals: Leelee Jackson NP, BEHAVIOR MANAGEMENT SPECIALIST-C [Primary Care Provider] -
[2022-10-28 16:45] LABS: Bacteria 2+ /hpf (None Seen); Red Blood Cells-Urine 0-5 SEEN /hpf (0-5); Squamous Epithelial Cells - UA 5-10 SEEN /hpf (5-10); White Blood Cells 5-10 SEEN /hpf (0-5)
--- NOTE | 2022-10-28 16:48 | EKG12_ITS ---
Test Reason : Blood Pressure : / mmHG Vent. Rate : 076 BPM Atrial Rate : 076 BPM P-R Int : 130 ms QRS Dur : 086 ms QT Int : 366 ms P-R-T Axes : 052 062 038 degrees QTc Int : 411 ms Normal sinus rhythm with sinus arrhythmia Normal ECG Confirmed by BJORN BAEZ, MARY ([id number]), avid editor SANJUANA CERVANTES ([id number]) on 11/01/2022 10:15:59 AM Referred By: LURDES Confirmed By:MARY MILAN MD
--- NOTE | 2022-10-28 17:14 | CM.ED ---
Social Work SW met with MD Craig and explained patient will be evaluated by [facility] once medically cleared due to time restrictions of this SW. SW faxed clinicals to [facility] faxage. Plan: [facility] to evaluate Maria De Jesus HUYNH, NANCY
[2022-10-28 20:00] VITALS: BP 118/80; PULSE 87; RESP 18; O2SAT 99
[2022-10-28] MEDS: Ziprasidone IM 20 MG/ML VIAL IM (21:14)
--- NOTE | 2022-10-28 21:25 | ED.RN ---
crisis contacted and they are aware of the patient they are busy and working on seeing patient as soon as possible
--- NOTE | 2022-10-28 21:56 | ED.RN ---
nursing staff called into the room. patient is clothed and yelling and throwing things at this time. patient is tried of still being here and wants to go another hospital that cares about patients. HRO called to room. This nurse and HRO spoke to nurse and explained conditions and listened to patient complaints at this time. Patient upset that she hasnt been seen and is still waiting. patient concerns expressed. medication given at this time. patient unstands at this time and verbal encouragement at this time
--- NOTE | 2022-10-28 22:26 | ED.RN ---
crisis in to see patient and eval. they are suggesting placement at this time
--- NOTE | 2022-10-28 23:55 | ED.RN ---
patient has been referred to mat akhtar
--- NOTE | 2022-10-29 00:25 | NURSING ---
CALLED [facility], ETA IS 7 AM
[2022-10-29 00:45] VITALS: BP 117/73; PULSE 82; RESP 17; TEMP 36.8; O2SAT 100
--- NOTE | 2022-10-29 00:45 | ED.RN ---
Report given to Filemon SULLIVAN @ [facility].
== END 2022-10-29 07:25 ==
PROVIDERS: Emergency Provider Emergency Medicine; PCP Nurse Practitioner Primary Care; Visit Provider Emergency Medicine
DX: R45.851 Suicidal ideations (principal); Z87.891 Personal history of nicotine dependence
CPT/HCPCS: 36415; 80048; 80307; 81001; 82077; 84703; 85025; 87811; 93005; 96372; 99285; J3486

== ENCOUNTER 2023-03-19 13:49 | Emergency (ER) | payer MEDICAID, SELFPAY ==
[2023-03-19 13:51] VITALS: BP 142/71; PULSE 85; RESP 18; TEMP 36.2; O2SAT 100; BMI 48.8
--- NOTE | 2023-03-19 14:08 | RAD_ITS ---
STUDY: XR Ankle Min 3 Views REASON FOR EXAM: Female, 27 years old. ANKLE PAIN TECHNIQUE: XR Ankle 3 Views RIGHT COMPARISON: 04.25.20. FINDINGS: Normal visualized distal tibia and fibula. Normal medial and lateral malleoli. Normal tibiotalar articulation and ankle mortise. Side plate and screws transfixing the calcaneus. There is a plantar calcaneal spur. Multiple arthrodesis screws extending through the base of the first metatarsal tarsal joint. RAD/Ankle min 3 Views IMPRESSION: There are no acute findings. Electronically Signed: Michael Perez MD at 15:15 EDT ,
--- NOTE | 2023-03-19 14:08 | RAD_ITS ---
EXAM: XR THORACIC SPINE, 2 VIEWS CLINICAL INDICATION: pain/injury -- -- -- FALL DOWN STAIRS, PAIN MID/LOWER BACK AND RT FOOT AND ANKLE TECHNIQUE: Frontal and lateral views of the thoracic spine. COMPARISON: No relevant prior studies available. FINDINGS: VERTEBRAE: Unremarkable. Preserved vertebral body height. No fracture. No spondylolisthesis. Preservation of the normal thoracic kyphosis. No significant facet arthropathy. DISC SPACES: Unremarkable. Disc spaces are maintained. RAD/Thoracic Spine 2 Views IMPRESSION: No evidence of thoracic spinal fracture or spondylolisthesis. Electronically Signed: Michael Perez MD at 14:57 EDT ,
--- NOTE | 2023-03-19 14:08 | RAD_ITS ---
EXAM: XR RIGHT FOOT COMPLETE, 3 OR MORE VIEWS CLINICAL INDICATION: pain/injury -- -- -- FALL DOWN STAIRS, PAIN MID/LOWER BACK AND RT FOOT AND ANKLE TECHNIQUE: Frontal, lateral and oblique views of the right foot. COMPARISON: 04.25.20 FINDINGS: BONES/JOINTS: There is a calcaneal spur. Stable fusion changes of the third metatarsal base to the underlying metatarsal bone. No acute fracture. No subluxation. Normal alignment. Preservation of the joint space. No sclerotic or destructive changes observed. SOFT TISSUES: Unremarkable. No soft tissue swelling or gas. No radiopaque foreign body. TUBES, LINES AND DEVICES: There is a stable plate and screw fixation device within the calcaneus. There is stable medial midfoot arthrodesis. RAD/Foot min 3 Views IMPRESSION: No acute findings in the right foot. Electronically Signed: Michael Perez MD at 14:59 EDT ,
--- NOTE | 2023-03-19 14:08 | RAD_ITS ---
STUDY: X-RAY - LUMBAR SPINE REASON FOR EXAM: Female, 27 years old. pain/injury -- -- -- FALL DOWN STAIRS, PAIN MID/LOWER BACK AND RT FOOT AND ANKLE TECHNIQUE: XR Spine Lumbar 2 or 3 Views COMPARISON: None FINDINGS: Normal lumbar lordosis. There is no substantial scoliosis. There is a normal alignment of the vertebrae. There is multilevel endplate spondylosis of the lumbar vertebrae. Normal disc space heights. The soft tissue structures are unremarkable. RAD/Lumbar Spine 2 or 3 Views IMPRESSION: There is multilevel endplate spondylosis of the lumbar vertebrae. Electronically Signed: Michael Perez MD at 15:14 EDT ,
--- NOTE | 2023-03-19 14:10 | EDS_ITS ---
HPI HPI - Fall History of Present Illness Chief Complaint: Fall Informant: patient Occured/Mechanism Occurred: Today Fall down steps #: entire flight, into basement to concrete floor/landing below Usually ambulates: Without assistance Associated Symptoms Associated Symptoms: Negative for Parasthesias, Weakness, Loss of function, Inability to ambulate, Loss of consciousness or Amnesia Narrative Narrative: Patient states she accidentally fell down an indoor flight of stairs ago down into her basement. The steps were carpeted but hard underneath, and she fell down to the concrete floor. She states her main injury is her low back, she states she felt it hit against multiple steps on the way down, in addition to her right foot and ankle. She was able to walk afterwards but with pain. She did not hit her head or lose consciousness or have any injury to that or her neck according to her and she has no chest or abdomen pain. Her arms are also not injured. She states this had something to do with her child leaving something on the steps for her to fall over. [facility] Medical History (Updated 03/19/23 @ 15:[address] Lenin Omalley MD) Back pain Bipolar disorder Depression with anxiety Home Medications hydrocodone-acetaminophen 5-325mg 5mg-325mg 1 tab PO Q4H PRN PRN Pain 2 days #10 TABLETS 03/30/22 [Rx Last Taken Unknown] Allergy/AdvReac Type Severity Reaction Status Date / Time docusate [From Colace] Allergy Hives Verified 03/19/23 13:50 lamotrigine [From Lamictal] Allergy Rash Verified 03/19/23 13:50 Penicillins Allergy Anaphylaxis Verified 03/19/23 13:50 Social History Smoking Status: Former smoker ROS ROS ED Constitutional Constitutional ED: Denies chills or fever(s) Eyes Eyes: Denies change in vision or diplopia ENT ENT ED: Denies ear pain, epistaxis, facial pain or rhinorrhea Cardiovascular Cardiovascular: Denies chest pain or palpitations Respiratory/Chest Respiratory/Chest: Denies cough or dyspnea Gastrointestinal Gastrointestinal: Denies abdominal pain, diarrhea, melena, nausea or vomiting Genitourinary Genitourinary ED: Denies dysuria or hematuria Musculoskeletal Musculoskeletal: Reports back pain and extremity pain; Denies neck pain Integumentary Denies abscess, Abrasions, laceration or rash Neurologic Neurologic: Denies confusion, headache(s), paresthesias or weakness EXAM Physical Exam Const Vital Signs: 03/19/23 13:51 03/19/23 14:25 Temperature 97.2 F L Temperature Source Temporal Pulse Rate 85 Respiratory Rate 18 Respiratory Effort Normal Non-Labored Respiratory Depth Normal Respiratory Pattern Normal Blood Pressure 142/71 H Blood Pressure Mean 94 Pulse Ox 100 Oxygen Delivery Method Room Air Positive well nourished, well developed and obese General Appearance ED: well developed and NAD Nutritional Appearance: obese HEENT Reports nasal mucous membranes and turbinates normal atraumatic Face and Sinus: Negative for facial tenderness Eyes PERRL and EOMs intact bilaterally Visual Acuity: other Other Details: no entrapment or pain with extraocular movements Neck full ROM and supple General: Negative for tenderness Chest Wall inspection of chest normal and palpation of chest normal Chest: symmetrical chest wall rise; Negative for crepitus or tenderness Resp normal respiratory effort and clear to auscultation bilaterally Percussion: other equal BS bilat Cardio no murmurs Rate: regular rate Rhythm: regular rhythm GI normal to inspection, nondistended, normoactive bowel sounds, soft to palpation and non-tender Back/Spine Back/Spine Narrative: Multiple areas of thoracic tenderness and greater tenderness in the lumbar area midline without any obvious signs of trauma externally, or palpable step-offs but obesity limits the exam. Nontender at the most distal aspect of the lumbosacral spine/coccyx. Pelvis is stable and nontender to AP compression and lateral compression. Cervical Spine: Negative for cervical spine tenderness Thoracic Spine / Upper Back: thoracic spinal tenderness Lumbar Spine / Lower Back: lumbar spinal tenderness Extremity normal to inspection and full ROM Extremity Narrative: Limited range of motion only with regards to the right ankle, all other joints ranged without pain. Tender at the lateral aspect of the right ankle at the lateral malleolus in addition to the soft tissues anterior to this and the base of the fifth metatarsal but no other foot tenderness. General Extremety ED: Yes tenderness Neuro oriented x3, CN's II-XII intact bilaterally, moves all extremities, no focal motor deficits and no sensory deficits noted Dominik Coma Scale: document GCS findings Spontaneous Obeys Commands Oriented 15 Sensorium / Orientation: awake and alert Psych mental status grossly normal and thought process normal Skin no wounds Lesions: no lesions Rashes: no rashes MDM MDM MDM Narrative Medical decision making narrative: X-ray series were ordered as follows: Thoracic spine 2 views, negative for fracture on my interpretation Lumbar spine 3 views, negative for fracture on my interpretation Right ankle 3 views, negative for fracture on my interpretation Right foot 3 views, negative for fracture on my interpretation; foot hardware from prior surgery noted and intact. Radiology in agreement with all of these. Patient reassured, she was given analgesics here she is asking for a work note and okay being discharged home, we will also give her an Aircast for the right ankle I suspect she sprained it. Radiography Diagnostic Testing: Clinical Impression(s) from Imaging Studies Ankle X-Ray 03/19/23 14:08 IMPRESSION: There are no acute findings. Electronically Signed: Michael Perez MD at 15:15 EDT , Foot X-Ray 03/19/23 14:08 IMPRESSION: No acute findings in the right foot. Electronically Signed: Michael Perez MD at 14:59 EDT , Lumbar Spine X-Ray 03/19/23 14:08 IMPRESSION: There is multilevel endplate spondylosis of the lumbar vertebrae. Electronically Signed: Michael Perez MD at 15:14 EDT , Thoracic Spine X-Ray 03/19/23 14:08 IMPRESSION: No evidence of thoracic spinal fracture or spondylolisthesis. Electronically Signed: Michael Perez MD at 14:57 EDT , Discharge Plan Triage Chief Complaint: Fall ED Provider: Lenin Omalley Dx/Rx/DC Orders Clinical Impression: Back contusion, Accidental fall on or from stairs or steps, Sprain of ankle, right Instructions: ED Back Contusion, ED Ankle Sprain (Adult) Prescriptions: No Action hydrocodone-acetaminophen [hydrocodone-acetaminophen] 5-325 mg tablet 1 tab PO Q4H PRN PRN (Reason: Pain) 2 Days Qty: 10 0RF Stand Alone Forms: ED Work / School Excuse Primary Care Provider: Leelee Jackson NP Referrals: Leelee Jackson NP, HOUSEKEEPER CLEANING COOKING-C [Primary Care Provider] - 1 Week if not improving Disposition Disposition: Home, Self Care
[2023-03-19] MEDS: Naproxen 250 MG Tablet 500 MG PO (14:22)
[2023-03-19] MEDS: traMADol 50 MG Tablet PO (14:22)
== END 2023-03-19 15:40 | disposition home or self-care (01) ==
PROVIDERS: Emergency Provider Emergency Medicine; PCP Nurse Practitioner Primary Care; Visit Provider Emergency Medicine
DX: S30.0XXA Contusion of lower back and pelvis, initial encounter (principal); S93.401A Sprain of unspecified ligament of right ankle, initial encounter; Z87.891 Personal history of nicotine dependence; E66.9 Obesity, unspecified; W10.9XXA Fall (on) (from) unspecified stairs and steps, initial encounter
CPT/HCPCS: 72070; 72100; 73610; 73630; 99283

== ENCOUNTER 2023-06-08 12:05 | Emergency (ER) | payer MEDICAID, SELFPAY ==
[2023-06-08 12:08] VITALS: BP 130/77; PULSE 104; RESP 20; TEMP 36.2; O2SAT 97; BMI 47.1
--- NOTE | 2023-06-08 14:38 | ED.RN ---
Pt came to desk and yelled that another pt that arrived before her had been taken back before her and felt her case was more urgent because she was having chest pain. She did not indicate at any time that she was suffering from chest pains and was triage'd as a 4 for cold symptoms. Pt did not give this RN the opportunity to explain the rationale or question her whether something had progressed for her. When asked if she had an iv she said no, and I wouldn't let you touch me if I had one. I'm reporting your doctors. LWBS
== END 2023-06-08 14:30 | disposition left against medical advice (07) ==
LOC: ED 14:58
PROVIDERS: PCP Nurse Practitioner Primary Care
DX: Z53.21 Procedure and treatment not carried out due to patient leaving prior to being seen by health care provider (principal)
CPT/HCPCS: 87631

== ENCOUNTER 2024-05-14 11:26 | Emergency (ER) | payer SELFPAY ==
[2024-05-14 11:27] VITALS: BP 133/73; PULSE 77; RESP 14; TEMP 36.1; O2SAT 99
[2024-05-14 11:39] VITALS: BMI 42.8
--- NOTE | 2024-05-14 12:01 | RAD_ITS ---
STUDY: X-RAY - LEFT FOOT CLINICAL: Female, 28 years old. Injury to the first and second toes. TECHNIQUE: 3 view(s) of the foot. COMPARISON: Comparison is made with prior study March 19, 2023. FINDINGS: The patient is status post fusion at the talocalcaneal joint as well as at the first tarsometatarsal joint. Normal visualized subtalar, talonavicular, calcaneocuboid, tarsal and tarsometatarsal articulations. Normal metatarsi. Normal metatarsophalangeal joint of the great toe. Normal tibial and fibular sesamoid bones. Normal interphalangeal joint of the great toe. Normal phalanges of the great toe. Normal second through fifth metatarsophalangeal joints. Normal interphalangeal joints and phalanges of the lesser toes. The soft tissue structures are unremarkable. RAD/Foot min 3 Views IMPRESSION: No acute abnormality is seen. Electronically Signed: Roc Coleman MD at 12:36 EST ,
--- NOTE | 2024-05-14 12:19 | ED.VIS.LOWEX ---
HPI History of Present Illness Chief Complaint: Lower Extremity Injury Detail of Chief Complaint: Injury left toes and foot due to blunt injury this past weekend Informant: patient Occured/Mechanism Mechanism/Context: Yes injury and Yes blunt trauma Comment: Ecchymosis swelling to the left great toe, second and third toe are ecchymotic Onset/Context/Timing Onset: Days Context: Sudden Onset Timing: Continuous Quality of Pain: Dull and Aching Location: Left foot and toes. Current Severity: Mild Maximum Severity: Moderate Worsened by: Weightbearing Relieved by: Nothing Associated Symptoms Associated Symptoms: Positive for Loss of Funtion; Negative for Parasthesia or Weakness Narrative Narrative: Patient is a 28-year-old female presents with blunt trauma to her left foot and toes. This occurred this past weekend. She has had surgery on the foot. She denies paresthesia, anesthesia motors. She has difficulty bearing any weight. She has no other complaints. Prior similar symptoms: No Recent Illness/Hospitalization: No PFSH PFSH Medical History Back pain Bipolar disorder Depression with anxiety Home Medications ?Medication ?Instructions ?Recorded ?Last Taken ?Type hydrocodone-acetaminophen 5-325mg 1 tab PO Q6H PRN PRN Pain 3 days 05/14/24 Unknown Rx 5mg-325mg #10 TABLETS Allergy/AdvReac Type Severity Reaction Status Date / Time docusate (From Colace) Allergy Hives Verified 05/14/24 11:27 lamotrigine (From Lamictal) Allergy Rash Verified 05/14/24 11:27 Penicillins Allergy Anaphylaxis Verified 05/14/24 11:27 Surgical History no surgical history no surgical history (History of surgery foot for Achilles tendon, flatfoot and other issues per patient, Dr. Brenner) Social History Smoking Status: Former smoker ROS ROS ED Integumentary Reports other Details: Bruising. ; Denies rash Neurologic Neurologic: Denies paresthesias or weakness Hematologic/Lymphatic Hematologic/Lymphatic: Denies easy bleeding or easy bruising EXAM Physical Exam Const Vital Signs: 05/14/24 11:27 Temperature 96.9 F L Temperature Source Temporal Pulse Rate 77 Respiratory Rate 14 Blood Pressure 133/73 H Blood Pressure Mean 93 Pulse Ox 99 Oxygen Delivery Method Room Air Positive well nourished and well developed Constitutional Narrative: BMI is 42.8. General Appearance ED: well developed HEENT normocephalic and atraumatic Eyes PERRL Eyes Narrative: Extract muscles are intact. Cardio regular rate and regular rhythm Extremity full ROM; Negative for normal to inspection Extremity Narrative: Ecchymosis of the left great, second and third toe. There is tenderness over the head of the first, second and third metatarsal. DP pulses 2+ and palpable. Neuro oriented x3, CN's II-XII intact bilaterally and moves all extremities Sensorium / Orientation: alert Psych mental status grossly normal Skin no wounds MDM MDM MDM Narrative Medical decision making narrative: X-rays obtained to evaluate for contusion versus fracture. Patient was treated with Naprosyn for her pain. Radiography Chest X-Ray - ED: Read by ED Physician (Three-view x-ray of the left foot reveals a intra-articular fracture of the proximal phalanx, IP joint. This is nondisplaced and nonangulated. There are screws noted from prior surgery involving the first metatarsal and the calcaneus.) Treatment and Re-Evaluation Narrative: Patient with nondisplaced fracture. Will ask if she would like to follow-up with podiatry who she has seen in the past or local imager. Patient was referred to Dr. Barksdale who is on for podiatry for no doc. Discharge Plan Triage Chief Complaint: Lower Extremity Injury ED Provider: Aroldo Eng Dx/Rx/DC Orders Clinical Impression: Nondisplaced fracture of proximal phalanx of great toe, BMI greater than 40, Elevated blood-pressure reading without diagnosis of hypertension Prescriptions: New hydrocodone-acetaminophen 5-325 mg tablet 1 tab PO Q6H PRN PRN (Reason: Pain) 3 Days Qty: 10 0RF Primary Care Provider: Leelee Jackson NP Referrals: Arden Barksdale MD [Med Staff - Active Staff] - 5-7 Days Leelee Jackson NP, [facility] [Primary Care Provider] - 1-2 Weeks Print Language: Panamanian Disposition Disposition: Home, Self Care
[2024-05-14] MEDS: Naproxen 500 MG Tablet PO (12:32)
[2024-05-14 12:54] VITALS: BP 134/69; PULSE 88; RESP 15; TEMP 36.4; O2SAT 100
== END 2024-05-14 12:55 | disposition home or self-care (01) ==
PROVIDERS: Emergency Provider Emergency Medicine; PCP Nurse Practitioner Primary Care; Visit Provider Emergency Medicine
DX: S92.415A Nondisplaced fracture of proximal phalanx of left great toe, initial encounter for closed fracture (principal); F31.9 Bipolar disorder, unspecified; X58.XXXA Exposure to other specified factors, initial encounter; R03.0 Elevated blood-pressure reading, without diagnosis of hypertension; Z88.0 Allergy status to penicillin; Z87.891 Personal history of nicotine dependence
CPT/HCPCS: 73630; 99284

== ENCOUNTER 2025-03-11 13:35 | Emergency (ER) | payer MEDICAID, SELFPAY ==
[2025-03-11 13:36] VITALS: BP 147/108; PULSE 76; RESP 16; TEMP 36.6; O2SAT 98; BMI 34.9
[2025-03-11] MEDS: HYDROcodone Bitartrate/Apap 5/325 Tablet PO (14:21)
--- NOTE | 2025-03-11 14:25 | RAD_ITS ---
PROCEDURE: FOOT MIN 3 VIEWS 03/11/2025 REASON FOR EXAM: PAIN TECHNIQUE: Procedure Code: RADFO Modality: DX Procedure: FOOT MIN 3 VIEWS Laterality: Left foot COMPARISON: Prior study dated February 13, 2024. FINDINGS: Bones: No fracture is seen. Joints: Patient is status post fusion of the 1st tarsal metatarsal joint as well as the calcaneus. Soft tissues: Soft tissues are unremarkable. Other: RAD/Foot min 3 Views IMPRESSION: No acute abnormality is seen. Reading Location: [id number]
--- NOTE | 2025-03-11 14:25 | RAD_ITS ---
PROCEDURE: ANKLE MIN 3 VIEWS 03/11/2025 REASON FOR EXAM: PAIN Prior surgery. TECHNIQUE: Procedure Code: RADANK Modality: DX Procedure: ANKLE MIN 3 VIEWS Laterality: Left ankle. COMPARISON: None FINDINGS: Bones: No fracture. Joints: Prior screw fixation of the talocalcaneal joint as well as the 1st tarsometatarsal joint. Soft tissues: Soft tissues are unremarkable. Other: RAD/Ankle min 3 Views IMPRESSION: Postsurgical changes as described. No acute abnormality is seen. Reading Location: [id number]
--- NOTE | 2025-03-11 14:25 | RAD_ITS ---
PROCEDURE: ANKLE MIN 3 VIEWS 03/11/2025 REASON FOR EXAM: PAIN TECHNIQUE: Procedure Code: RADANK Modality: DX Procedure: ANKLE MIN 3 VIEWS Laterality: Right ankle. COMPARISON: None FINDINGS: Bones: No fracture is seen. Joints: Prior fusion of the tarsal metatarsal joint as well as the anterior calcaneal joint. Soft tissues: Soft tissues are unremarkable. Other: RAD/Ankle min 3 Views IMPRESSION: No acute abnormality is seen. Reading Location: [id number]
--- NOTE | 2025-03-11 14:25 | RAD_ITS ---
PROCEDURE: FOOT MIN 3 VIEWS 03/11/2025 REASON FOR EXAM: PAIN TECHNIQUE: Procedure Code: RADFO Modality: DX Procedure: FOOT MIN 3 VIEWS Laterality: Right foot COMPARISON: Prior study dated March 19, 2023. FINDINGS: Bones: No fracture seen. Joints: Once again, there is fusion the 1st tarsal metatarsal joint as well as the navicular talar joint as well as the talocalcaneal joint. No acute abnormality is seen. Soft tissues: Soft tissues are unremarkable. Other: RAD/Foot min 3 Views IMPRESSION: Status post fusion as described. No acute abnormality is seen. Reading Location: [id number]
--- NOTE | 2025-03-11 14:36 | EX.ED.DYSGE1 ---
HPI History of Present Illness Chief Complaint: Other, Pain/Inj Narrative Narrative: Patient is a 29-year-old female with past medical history of depression, anxiety, bipolar disorder, previous foot surgeries as a child who presents to the emergency department with a chief complaint of bilateral foot pain. States that yesterday she developed bilateral foot pain and burning sensation states that it feels like I am walking on knives. States that she was walking home from work and notes that she tripped and ever since then her symptoms did worsen. She tried to take ibuprofen with no relief prompting her to come here for further evaluation management. Patient states that her pain is from her ankles down. [facility] Medical History Back pain Bipolar disorder Depression with anxiety Home Medications ?Medication ?Instructions ?Recorded ?Last Taken ?Type buspirone 10 mg tablet 10 mg PO TID MOOD 03/11/25 03/10/25 History escitalopram oxalate 20 mg tablet 20 mg PO DAILY MOOD 03/11/25 03/10/25 History trazodone 50 mg tablet 50 mg PO QHS SLEEP 03/11/25 03/10/25 History Allergy/AdvReac Type Severity Reaction Status Date / Time docusate (From Colace) Allergy Hives Verified 03/11/25 13:38 lamotrigine (From Lamictal) Allergy Rash Verified 03/11/25 13:38 Penicillins Allergy Anaphylaxis Verified 03/11/25 13:38 Social History Smoking Status: Current every day smoker tobacco type: e-cigarettes ROS ROS ED ROS Narrative Constitutional: Denies any fevers, chills, headaches denies IV drug use, states that she does smoke and denies alcohol use Eyes: Denies double vision Cardiovascular: Denies chest pain Respiratory: Denies shortness of breath Neurological: Complains of burning sensation in her bilateral feet as noted above Musculoskeletal: Complains of bilateral feet pain as noted above Skin: States that she developed a bruise to her left bishop yesterday after the fall EXAM Physical Exam Narrative Exam Narrative: General: Patient is lying in bed resting comfortably did not appear to be in acute distress Head: Atraumatic, normocephalic Eyes: PERRL bilaterally, EOMI bilaterally, no conjunctival injection noted Neck: Soft, supple, trachea midline Cardiovascular: Regular rate Extremities: DP pulses +2/4 in the bilateral lower extremities, +5/5 strength noted in the bilateral upper and lower extremities Neurological: Patient following commands that she was at [facility] year is 2024 sensation grossly intact Musculoskeletal: Patient does have tenderness to palpation to her right lateral malleolus and the left medial malleolus compartments are soft compressible in the bilateral lower extremities Skin: Warm, dry, intact no rashes or lesions noted Const Vital Signs: 03/11/25 13:36 Temperature 98 F Temperature Source Oral Pulse Rate 76 Respiratory Rate 16 Blood Pressure 147/108 H Blood Pressure Mean 121 Pulse Ox 98 Oxygen Delivery Method Room Air MDM MDM MDM Narrative Medical decision making narrative: Patient is a 29-year-old female who presents to the emergency department the chief complaint of bilateral foot pain. On the differential diagnose includes but not limited to neuropathy, ankle fracture/foot fracture although have low suspicion for these clinically. Patient will be given [place] and Zofran and be reevaluated. Patient's x-rays of her bilateral feet were reviewed by myself and by radiology which showed no acute abnormalities chronic postsurgical changes noted. Patient's ankle x-ray reviewed by myself by radiology bilaterally which showed postsurgical changes noted as well with no acute abnormalities. She was advised to continue to rotate Tylenol and ibuprofen [id number] for pain control she was advised to follow-up with her foot doctor as well as her primary care physician. She was given a work note she is advised to return with worsening symptoms or concerns. She is agreeable this plan all question concerns answered she was discharged home in stable condition. Radiography Diagnostic Testing: Clinical Impression(s) from Imaging Studies Ankle X-Ray 03/11/25 14:25 IMPRESSION: No acute abnormality is seen. Reading Location: [id number] Ankle X-Ray 03/11/25 14:25 IMPRESSION: Postsurgical changes as described. No acute abnormality is seen. Reading Location: [id number] Foot X-Ray 03/11/25 14:25 IMPRESSION: Status post fusion as described. No acute abnormality is seen. Reading Location: [id number] Foot X-Ray 03/11/25 14:25 IMPRESSION: No acute abnormality is seen. Reading Location: [facility] Discharge Plan Triage Chief Complaint: Other, Pain/Inj ED Provider: Eduardo Castellon Dx/Rx/DC Orders Clinical Impression: Bilateral foot pain, Bilateral ankle pain, History of bipolar disorder Prescriptions: No Action trazodone 50 mg tablet 50 mg PO QHS buspirone 10 mg tablet 10 mg PO TID escitalopram oxalate 20 mg tablet 20 mg PO DAILY Primary Care Provider: Leelee Jackson NP Referrals: Leelee Jackson NP, [facility] [Primary Care Provider, [facility]] Activity Restrictions/Additional Instructions: Your x-rays did not show any acute findings here today. Rotate Tylenol and ibuprofen [id number] when you do this you can take summative 3 hours for pain with max dose of Tylenol in 24 hours 4000 mg max dose of ibuprofen in 24 hours 3200 mg. Follow-up with your doctors in the outpatient setting as discussed. Print Language: Maltese Disposition Disposition: Home, Self Care
[2025-03-11 15:24] VITALS: BP 100/83; PULSE 72; RESP 16; TEMP 36.6; O2SAT 98
== END 2025-03-11 15:26 | disposition home or self-care (01) ==
PROVIDERS: Emergency Provider Emergency Medicine; PCP Nurse Practitioner Primary Care; Visit Provider Emergency Medicine
DX: M25.571 Pain in right ankle and joints of right foot (principal); F31.9 Bipolar disorder, unspecified; M25.572 Pain in left ankle and joints of left foot; F41.9 Anxiety disorder, unspecified; F17.290 Nicotine dependence, other tobacco product, uncomplicated; Z79.899 Other long term (current) drug therapy
CPT/HCPCS: 73610; 73630; 99284